=== PATIENT | male | born 1940 | race Caucasian/White ===

== ENCOUNTER 2019-01-05 12:46 | Emergency (ER) | payer MEDICARE ==
[2019-01-05 13:22] LABS: #Eosinphils 0.4 thou/uL (0.0-0.7); #Lymphocytes 1.2 thou/uL (1.20-3.40); #Monocytes 0.9 thou/uL (0.11-0.59); #Neutrophils 8.9 thou/uL (1.40-6.50); %Basophils 0.1 % (0.0-1.0); %Eosinophils 3.4 % (0.0-10.0); %Lymphocytes 10.2 % (21.0-51.0); %Monocytes 7.6 % (0.0-10.0); %Neutrophils 78.7 % (42.0-75.0); Hemoglobin 13.2 g/dL (14.0-18.0); Mean Corpuscular HGB CONC 31.1 g/dL (32.0-36.0); Mean Corpuscular Hemoglobin 28.3 pg (27.0-31.0); Mean Corpuscular Volume 90.7 fL (78.0-98.0); Mean Platelet Volume 7.1 fL (7.4-10.4); Platelet Count 321 thou/uL (130-400); RBC Distribution Width 13.4 % (11.5-14.5); Red Blood Cell (RBC) Count 4.66 mill/uL (4.70-6.10); White Blood Cell (WBC) Count 11.3 thou/uL (4.8-10.8)
[2019-01-05] MEDS ORDERED: methylPREDNISolone Sod Succ/PF 125 MG/2 ML VIAL ONE (13:27)
--- NOTE | 2019-01-05 13:29 | RAD ---
FXR Chest 1 View Portable History: [Dyspnea] Comparison: Radiograph October 13, 2015 Findings: Abnormal scarring both lung bases. Bullous formation in the upper lobes. Heart size is erika lar. No acute osseous abnormality. Calcific plaque and scarring left lung apex. Impression: Obstructive pulmonary disease. Likely scarring both lung bases.
[2019-01-05 13:54] LABS: ALT (SGPT) 10 U/L (8-55); AST (SGOT) 11 U/L (5-34); Albumin 3.7 g/dL (3.4-4.8); Alkaline Phosphatase 70 U/L (40-150); Anion Gap 13 mmol/L (10-20); BUN (Urea Nitrogen) 23 mg/dL (8.4-25.7); Bilirubin, Total 0.4 mg/dL (0.2-1.2); Calc. Creatinine Clearance 0 mL/min (70-130); Carbon Dioxide 35 mmol/L (23-31); Chloride 95 mmol/L (98-107); Estimated GFR-MDRD 74; Globulin 2.2 g/dL (2.4-3.5); Glucose 102 mg/dL (83-110); Potassium 3.9 mmol/L (3.5-5.1); Protein, Total 5.9 g/dL (5.8-8.1); Sodium 139 mmol/L (136-145)
[2019-01-05 15:18] LABS: Actual Bicarbonate (HCO3a) 33.3 mEq/L (22-28); Analyzer IN Cardio ER; Base Excess (BEa) 7.8 mEq/L (-2.0 to +3.0); Calcium, Ionized 1.19 mmol/L (1.12-1.30); Carboxyhemoglobin (COHb) 0.3 gm% (0.0-3.0); Hemoglobin (Hb) 13.3 g/dL (14.0-18.0); O2 Tension (PaO2) 79.6 mmHg (> 60.0); Potassium - ABG Lab 3.77 mmol/L (3.70-5.30); pH, Arterial 7.44 (7.35-7.45)
[2019-01-05 15:19] LABS: Puncture Site L.R.
== END 2019-01-05 15:51 | disposition home or self-care (01) ==
LOC: ERS 12:46
DX: J44.9 Chronic obstructive pulmonary disease, unspecified (principal); I10 Essential (primary) hypertension; E78.5 Hyperlipidemia, unspecified; Z87.891 Personal history of nicotine dependence; Z79.899 Other long term (current) drug therapy; Z79.51 Long term (current) use of inhaled steroids; Z79.01 Long term (current) use of anticoagulants
CPT/HCPCS: 71045; 80053; 82805; 83880; 84484; 85025; 93005; 94640; 96374; J2930; J7620

== ENCOUNTER 2019-11-13 11:42 | Inpatient (IN) | payer MEDICARE ==
[2019-11-13] MEDS ORDERED: Nitroglycerin 2% Ointment 1 INCH/1 GM Packet ONE (11:46)
[2019-11-13 12:00] LABS: Actual Bicarbonate (HCO3a) 45.8 mEq/L (22-28); Analyzer IN Cardio ER; Base Excess (BEa) 18.1 mEq/L (-2.0 to +3.0); Calcium, Ionized 1.16 mmol/L (1.12-1.30); Carboxyhemoglobin (COHb) 0.1 gm% (0.0-3.0); Hemoglobin (Hb) 10.8 g/dL (14.0-18.0); O2 Tension (PaO2) 86.8 mmHg (> 60.0); Potassium - ABG Lab 4.19 mmol/L (3.70-5.30); pH, Arterial 7.41 (7.35-7.45)
--- NOTE | 2019-11-13 12:04 | RAD ---
XR Chest 1 View Portable HISTORY: Shortness of breath COMPARISON: 05/11/2019 FINDINGS: The heart size is normal. The aorta is tortuous. There is been interval development of 8.5 cm mass in the right infrahilar region. This is suspicious for malignancy and should be evaluated with a CT scan.
[2019-11-13 12:10] LABS: #Eosinphils 0.1 thou/uL (0.0-0.7); #Lymphocytes 0.7 thou/uL (1.20-3.40); #Monocytes 1.1 thou/uL (0.11-0.59); #Neutrophils 8.1 thou/uL (1.40-6.50); %Basophils 0.4 % (0.0-1.0); %Eosinophils 0.8 % (0.0-10.0); %Lymphocytes 6.7 % (21.0-51.0); %Monocytes 10.7 % (0.0-10.0); %Neutrophils 81.5 % (42.0-75.0); Mean Corpuscular HGB CONC 31.6 g/dL (32.0-36.0); Mean Corpuscular Hemoglobin 28.4 pg (27.0-31.0); Mean Corpuscular Volume 89.8 fL (78.0-98.0); Mean Platelet Volume 7.2 fL (7.4-10.4); Platelet Count 304 thou/uL (130-400); RBC Distribution Width 14.3 % (11.5-14.5); Red Blood Cell (RBC) Count 3.53 mill/uL (4.70-6.10); White Blood Cell (WBC) Count 9.9 thou/uL (4.8-10.8)
[2019-11-13 12:28] LABS: Bilirubin Negative (Negative); Blood, Urine 3+ (Negative); Clarity Turbid (Clear); Glucose, Urine (Dipstick) Normal (Negative); Leukocyte 25 Leu/uL (Negative); Nitrite Negative (Negative); Protein, Urine (Dipstick) 20 mg/dL (Neg-Trace); RBC/HPF Greater than 50 HPF (0-3); Squamous Epithelial None Seen HPF (0-3); Urobilinogen Normal mg/dL (Less than 2)
[2019-11-13 12:30] LABS: ALT (SGPT) 9 U/L (8-55); AST (SGOT) 12 U/L (5-34); Albumin 3.4 g/dL (3.4-4.8); Alkaline Phosphatase 71 U/L (40-110); BUN (Urea Nitrogen) 18 mg/dL (8.4-25.7); Bilirubin, Total 0.4 mg/dL (0.2-1.2); Calc. Creatinine Clearance 0 mL/min (70-130); Calcium 9.4 mg/dL (7.8-10.44); Estimated GFR-MDRD Greater than 90; Globulin 3.1 g/dL (2.4-3.5); Glucose 104 mg/dL (83-110); Protein, Total 6.5 g/dL (5.8-8.1)
[2019-11-13 12:39] LABS: Bacteria/HPF 1+ HPF (None Seen)
[2019-11-13 12:39] LABS: Anion Gap 15 mmol/L (10-20); Chloride 87 mmol/L (98-107); Potassium 4.3 mmol/L (3.5-5.1); Sodium 139 mmol/L (136-145)
[2019-11-13 12:43] LABS: Carbon Dioxide 41 mmol/L (23-31)
[2019-11-13 13:06] LABS: Actual Bicarbonate (HCO3a) 45.2 mEq/L (22-28); Analyzer IN Cardio ER; Base Excess (BEa) 17.3 mEq/L (-2.0 to +3.0); Calcium, Ionized 1.16 mmol/L (1.12-1.30); Carboxyhemoglobin (COHb) 0.1 gm% (0.0-3.0); Hemoglobin (Hb) 10.9 g/dL (14.0-18.0); O2 Tension (PaO2) 100.9 mmHg (> 60.0); Potassium - ABG Lab 4.22 mmol/L (3.70-5.30)
[2019-11-13 13:07] LABS: CO2 Tension 73.2 mmHg (35.0-45.0)
[2019-11-13 13:08] LABS: Puncture Site RRA
[2019-11-13] MEDS ORDERED: Furosemide 40 MG/4 ML VIAL ONE (13:08)
[2019-11-13 13:09] LABS: Puncture Site RRA
[2019-11-13] MEDS ORDERED: Diltiazem 125 MG/25 ML ONE (13:15)
[2019-11-13] MEDS ORDERED: Sodium Chloride 0.65% Nasal 44 ML BOT EA NARE PRN (14:39)
[2019-11-13] MEDS ORDERED: Ondansetron PF 4 MG/2 ML Vial IVP PRN (14:39)
[2019-11-13] MEDS ORDERED: Bisacodyl 10 MG SUPP PR PRN (14:39)
[2019-11-13] MEDS ORDERED: hydrALAZINE 20 MG/ML VIAL SLOW IVP PRN (14:39)
[2019-11-13] MEDS ORDERED: Diabetic Tussin 200 MG/10 ML UDCUP PO PRN (14:39)
[2019-11-13] MEDS ORDERED: Loratadine 10 MG TAB PO PRN (14:39)
[2019-11-13] MEDS ORDERED: Ondansetron ODT 4 MG TAB PO PRN (14:39)
[2019-11-13] MEDS ORDERED: Cepastat Lozenges 1 LOZ PO PRN (14:39)
[2019-11-13] MEDS ORDERED: Senokot S 8.6-50 MG TAB PO PRN (14:39)
[2019-11-13] MEDS ORDERED: Loperamide HCl 2 MG CAP PO PRN (14:39)
[2019-11-13] MEDS ORDERED: Artificial Tear Sol 15 ML BOT EA EYE PRN (14:39)
--- NOTE | 2019-11-13 15:29 | HP ---
PRIMARY CARE PHYSICIAN: Dr. Blackwood. REASON FOR ADMISSION: Acute on chronic respiratory failure with hypoxia and hypercapnia, COPD exacerbation, acute on chronic right-sided heart failure exacerbation, atrial fibrillation with rapid ventricular response. HISTORY OF PRESENT ILLNESS: An 79-year-old male, who has end-stage COPD as well as chronic respiratory failure, on 4 L nasal cannula oxygen, who is following full stack php developer at the [facility]. The patient lives at home, and for last three days, he is having increasing shortness of breath. He denies any flu-like illness, but his condition gotten worse this morning. He was not able to talk in full sentence and he was not able to breathe by himself and that is why the patient was brought to emergency room by Paramedics. When he arrived to emergency room, he appeared in respiratory distress. He was not able to talk in full sentence. He required BiPAP and he had ABG done which showed CO2 of 75, and pH was 7.40, and bicarbonate 45.2. When looking at his old record, the patient also has chronic retention of COPD, but lately this problem gotten worse. The patient denies any chest pain or palpitation, but when he arrived to emergency room, he was having atrial fibrillation with RVR. He was treated with Cardizem drip. He was kept on BiPAP and after that the patient started feeling better, and after BiPAP started, the patient was able to talk by himself and he was not appeared in respiratory distress. The patient also has increasing bilateral lower extremity edema. The patient denies any fever or chills. He does not have any syncope. EMERGENCY ROOM COURSE: The patient was given Cardizem push and subsequently Cardizem drip was started. Lasix 80 mg given. Nitroglycerin patch was applied. REVIEW OF SYSTEMS: CONSTITUTIONAL: Negative for weight loss or gain, ability to conduct usual activities. SKIN: Negative for rash, itching. EYES: Negative for double vision, pain. ENT/MOUTH: Negative for nose bleeding, neck stiffness, pain, tenderness. CARDIOVASCULAR: Negative for palpitations, dyspnea on exertion, orthopnea. RESPIRATORY: Negative for shortness of breath, wheezing, cough, hemoptysis, fever or night sweats. GASTROINTESTINAL: Negative for poor appetite, abdominal pain, heartburn, nausea, vomiting, constipation, or diarrhea. GENITOURINARY: Negative for urgency, frequency, dysuria, nocturia. MUSCULOSKELETAL: Negative for pain, swelling. NEUROLOGIC/PSYCHIATRIC: Negative for anxiety, depression. ALLERGY/IMMUNOLOGIC: Negative for skin rash, bleeding tendency. Please see my HPI for pertinent positives and negatives. All other review of systems reviewed and negative except as mentioned in HPI. ADDITIONAL INFORMATION: The patient also reports that he is following his full stack php developer in [facility] and he had CT scan done about a week ago and he was told that he has some lung mass and that is why he has outpatient PET scan ordered. PAST MEDICAL HISTORY: Chronic respiratory failure with hypoxia and hypercapnia, end-stage COPD, history of pulmonary embolism, benign enlargement of prostate, hypertension, history of prostate cancer, chronic atrial fibrillation, chronic physical deconditioning, dyslipidemia. PAST SURGICAL HISTORY: Lumbar laminectomy, bilateral knee surgery. ALLERGIES: PENICILLIN, HYDROCHLOROTHIAZIDE, ADHESIVE TAPE. SOCIAL HISTORY: The patient lives at home with his family. He is former smoker, currently nonsmoker. He denies any alcohol abuse. He denies any other illicit drug abuse. FAMILY HISTORY: Positive for SC and coronary artery disease in his father. Mother also had cancer. One brother had heart attack. Sister from COPD. CURRENT HOME MEDICATIONS: 1. Brovana nebulization twice daily. 2. Pulmicort nebulization twice daily. 3. DuoNeb four times daily. 4. Proscar 5 mg daily. 5. Hydroxyzine 25 mg p.o. p.r.n. 6. Simvastatin 40 mg daily. 7. Cardizem CD 180 mg daily. 8. Xarelto 20 mg daily. 9. Lasix 40 mg p.o. daily. PAST PSYCHIATRIC HISTORY: Reviewed and negative. PHYSICAL EXAMINATION: VITAL SIGNS: Vital signs upon arrival to emergency room, blood pressure 133/72, pulse 140 and irregular, respiratory rate 32, saturation 99% on 3 L oxygen, weight 72 kg, temperature 98.5. GENERAL: The patient is currently alert, awake, no obvious acute distress. HEENT: Head, normocephalic and atraumatic. NECK: Supple. No JVD. No meningeal signs of irritation. LUNGS: Air entry reduced bilaterally, few scattered wheezing as well as rales noted. CARDIAC: S1, S2. Irregularly irregular. Systolic murmur noted parasternally. No gallop. No rub. ABDOMEN: Soft, bowel sounds present, nontender, nondistended. No organomegaly. No mass. EXTREMITIES: Bilateral lower extremity pitting edema noted. NEUROLOGIC: Nonfocal examination. SIGNIFICANT LABORATORY DATA: EKG showing atrial fibrillation with rapid ventricular response. CBC; WBC a 9.9, hemoglobin 10.0, platelet 304. ABG; pH 7.40, CO2 of 75, O2 of 100.9, bicarb 45.2, saturation 97.8. BMP; sodium 139, potassium 4.3, chloride 87, carbon dioxide 41, BUN 18, creatinine 0.69, glucose 104, calcium 9.4, lactic acid 0.9. LFT; AST 12, ALT 9, alkaline phosphatase 71, albumin 3.4. CK-MB 3.0, troponin 0.040. BNP 224.0. Urinalysis; rbc greater than 50 and wbc 7 to 10. ASSESSMENT AND PLAN: 1. Acute on chronic respiratory failure with hypoxia and hypercapnia. 2. Atrial fibrillation with rapid ventricular response. 3. Acute on chronic diastolic congestive heart failure, predominantly right-sided heart failure. 4. Chronic obstructive pulmonary disease exacerbation. 5. Respiratory acidosis with compensation with metabolic alkalosis. 6. Demand ischemia secondary to type 2 myocardial infarction. 7. Chronic physical deconditioning. 8. Normocytic normochromic anemia. 9. Chronic anticoagulation with Xarelto. 10. Benign enlargement of prostate with history of prostate cancer. 11. Dyslipidemia. 12. Hypertension. 13. Chronic physical deconditioning. 14. Anemia, normocytic and normochromic anemia. DISCUSSION: This patient has chronic CO2 retention, but lately gotten worse. Based on BMP, he has elevated carbon dioxide, and at the same time, the patient also has elevated bicarbonate and pH is normal and that supports the patient has compensated respiratory acidosis from end-stage COPD. The patient has right-sided heart failure predominantly from chronic hypoxia and suspecting cor pulmonale. He also has atrial fibrillation which has gotten worse from hypoxia and hypercapnia. At this point, the patient will require admission. We will consult. PLAN: 1. Admission to [facility] as the patient has been stabilized and currently the patient appears stable. Pulmonary consultation. 2. Cardiology consultation for atrial fibrillation with RVR. 3. Continue Lasix 40 mg IV b.i.d. and also consider acetazolamide 250 mg t.i.d. to prevent alkalosis. 4. Cardizem drip and titrate as needed. 5. Empiric antibiotic therapy with levofloxacin daily. 6. DuoNeb every 4 hourly and Solu-Medrol 40 mg IV q.6 hourly, Mucinex 600 mg twice daily, Pulmicort nebulization twice daily. 7. Protonix 40 mg IV daily. 8. Monitor labs. Do serial cardiac enzymes x3. 9. The patient also has a hilar mass and that is the patient is already followed by full stack php developer at [facility] and he is scheduled for outpatient PET scan. The patient's long-term prognosis is very poor. The patient is not a candidate for future any kind of surgical treatment or chemotherapy. I have discussed with the patient and family member about code status at this point, but the patient wanted to talk to his son to decide about DNR, but the patient's sister and patient is inclined to her DNR status, but they have not made any final decision yet. We will consult palliative care. 10. Deep venous thrombosis prophylaxis. At this point, the patient is not taking Xarelto once we confirm that they will resume selected home medication. 11. Gastrointestinal prophylaxis, Protonix 40 mg IV daily. DISPOSITION PLAN: Based on clinical course, the patient's condition is critical and prognosis is guarded based on clinical course. Plan of care discussed with the patient and family member at bedside in the emergency room in detail. Job ID: [id number]
[2019-11-13 15:31] LABS: Troponin I 0.064 ng/mL (< 0.028)
[2019-11-13] MEDS ORDERED: Sodium Chloride 0.9% (PF) 10 ML VIAL FS PRN (15:51)
[2019-11-13] MEDS ORDERED: Bacteriostatic Water 30 ML VIAL FS PRN (15:52)
[2019-11-13] MEDS ORDERED: Levofloxacin 500 mg/D5W 100 ml Premix Bag ONE (17:30)
[2019-11-13 18:19] LABS: Troponin I 0.052 ng/mL (< 0.028)
[2019-11-13] MEDS: Budesonide 0.5 MG/2 ML NEB INH SCH (21:09)
[2019-11-13] MEDS: methylPREDNISolone Sod Succ 40 MG VIAL IVP SCH (22:17)
[2019-11-13] MEDS: guaiFENesin ER 600 MG TAB PO SCH (22:22)
[2019-11-13] MEDS: Atorvastatin Calcium 20 MG TAB PO SCH (22:22)
[2019-11-13] MEDS: AcetaZOLAMIDE 250 MG TAB PO SCH (22:22)
[2019-11-13] MEDS: Famotidine 20 MG TAB PO SCH (22:22)
[2019-11-14] MEDS: methylPREDNISolone Sod Succ 40 MG VIAL IVP SCH ×3 (01:11→14:53)
[2019-11-14] MEDS: Diltiazem 125 MG in Sodium Chloride 0.9% 100 ML IVPB SCH ×2 (01:29→21:47)
[2019-11-14 06:03] LABS: Hemoglobin 10.4 g/dL (14.0-18.0); Mean Corpuscular HGB CONC 31.3 g/dL (32.0-36.0); Mean Corpuscular Hemoglobin 27.7 pg (27.0-31.0); Mean Corpuscular Volume 88.5 fL (78.0-98.0); Mean Platelet Volume 7.3 fL (7.4-10.4); Platelet Count 313 thou/uL (130-400); RBC Distribution Width 14.6 % (11.5-14.5); Red Blood Cell (RBC) Count 3.76 mill/uL (4.70-6.10); White Blood Cell (WBC) Count 15.4 thou/uL (4.8-10.8)
[2019-11-14] MEDS: Furosemide 40 MG/4 ML VIAL SLOW IVP SCH ×2 (06:25→14:55)
[2019-11-14 06:27] LABS: BUN (Urea Nitrogen) 21 mg/dL (8.4-25.7); Calc. Creatinine Clearance 85 mL/min (70-130); Calcium 9.5 mg/dL (7.8-10.44); Estimated GFR-MDRD Greater than 90; Glucose 124 mg/dL (83-110); Uric Acid 6.4 mg/dL (3.5-7.2)
[2019-11-14 06:38] LABS: Chloride 87 mmol/L (98-107); Potassium 4.1 mmol/L (3.5-5.1); Sodium 139 mmol/L (136-145)
[2019-11-14 06:41] LABS: Anion Gap 17 mmol/L (10-20); Carbon Dioxide 39 mmol/L (23-31)
[2019-11-14 07:16] LABS: Band 9 % (5-11); Lymphocytes 2 % (21-51); MDiff Complete? YES; Neutrophil 89 % (42-75)
[2019-11-14] MEDS: Budesonide 0.5 MG/2 ML NEB INH SCH ×2 (08:58→19:10)
[2019-11-14] MEDS: Aspirin Chewable 81 MG TAB PO SCH (10:01)
[2019-11-14] MEDS: Finasteride 5 MG TAB PO SCH (10:01)
[2019-11-14] MEDS: AcetaZOLAMIDE 250 MG TAB PO SCH ×3 (10:01→20:14)
[2019-11-14] MEDS: Famotidine 20 MG TAB PO SCH ×2 (10:01→20:14)
[2019-11-14] MEDS: guaiFENesin ER 600 MG TAB PO SCH ×2 (10:01→20:15)
[2019-11-14] MEDS: Pantoprazole 40 MG VIAL IVP SCH (10:02)
[2019-11-14] MEDS ORDERED: Rivaroxaban 10 MG TAB PO SCH ×2 (12:45→13:00)
--- NOTE | 2019-11-14 12:49 | PDOC.HOSPP ---
- Subjective Encounter Date: 11/14/19 Encounter Time: 08:00 Subjective: no overnight events. This morning, breathing and saturation improving. Has no complaints. - Objective Vital Signs & Weight: Vital Signs (12 hours) Temp Pulse Resp Pulse Ox 11/14/19 10:16 104 H 21 H 95 11/14/19 08:58 117 H 29 H 11/14/19 07:39 97.6 F 11/14/19 03:50 97.2 F L 11/14/19 01:45 100 Weight Weight 169 lb 11.2 oz Most Recent Monitor Data Heart Rate from ECG 102 NIBP 116/76 NIBP BP-Mean 89 Respiration from ECG 24 SpO2 96 I&O: 11/13/19 11/14/19 11/15/19 06:59 06:59 06:59 Intake Total 649 Output Total 600 275 Balance 49 -275 Result Diagrams: 11/14/19 05:33 11/14/19 05:33 Radiology Reviewed by me: Yes Hospitalist ROS - Review of Systems Constitutional: denies: fever, chills, sweats, weakness, malaise, other Respiratory: reports: cough, dry. denies: shortness of breath, hemoptysis, SOB with excertion, pleuritic pain, sputum, wheezing Cardiovascular: denies: chest pain, palpitations, orthopnea, paroxysmal noc. dyspnea, edema, light headedness, other Gastrointestinal: denies: nausea, vomiting, abdominal pain, diarrhea, constipation, melena, hematochezia, other Genitourinary: denies: dysuria, frequency, incontinence, hematuria, retention, other Neurological: denies: weakness, incoordination - Medication Medications: Active Medications Generic Name Dose Route Start Last Admin Trade Name Freq PRN Reason Stop Dose Admin Acetazolamide 250 mg 11/13/19 21:00 11/14/19 10:01 Diamox PO 250 mg TID KHADRA Administration Albuterol/Ipratropium 3 ml 11/13/19 15:00 11/14/19 10:16 Duoneb NEB 3 ml [id number] KHADRA Administration Aspirin 81 mg 11/14/19 09:00 11/14/19 10:01 Aspirin Chewable PO 81 mg DAILY KHADRA Administration Atorvastatin Calcium 20 mg 11/13/19 21:00 11/13/19 22:22 Lipitor PO 20 mg HS KHADRA Administration Budesonide 0.5 mg 11/13/19 18:30 11/14/19 08:58 Pulmicort Neb Solution INH 0.5 mg BID-RT KHADRA Administration Famotidine 20 mg 11/13/19 21:00 11/14/19 10:01 Pepcid PO 20 mg BID KHADRA Administration Finasteride 5 mg 11/14/19 09:00 11/14/19 10:01 Proscar PO 5 mg DAILY KHADRA Administration Furosemide 40 mg 11/14/19 06:00 11/14/19 06:25 Lasix SLOW IVP 40 mg 0600,1400 KHADRA Administration Guaifenesin 600 mg 11/13/19 21:00 11/14/19 10:01 Mucinex PO 600 mg Q12HR KHADRA Administration Diltiazem HCl 125 mg/ Sodium 125 mls @ 10 mls/hr 11/13/19 14:45 11/14/19 01: 29 Chloride IVPB 125 mls INF KHADRA Administration Protocol 10 MG/HR Levofloxacin 500 mg/ Device 100 mls @ 100 mls/hr 11/13/19 17:00 11/13/19 17: 38 IVPB 100 mls Q24HR KHADRA Administration Methylprednisolone Sodium Succinate 40 mg 11/13/19 18:00 11/14/19 06:25 Solu-Medrol IVP 40 mg Q6HR KHADRA Administration Pantoprazole Sodium 40 mg 11/14/19 09:00 11/14/19 10:02 Protonix IVP 40 mg DAILY KHADRA Administration Sodium Chloride 10 ml 11/13/19 15:51 11/14/19 10:02 Normal Saline Pf FS 10 ml PRN PRN Administration RECONSTITUTION - Exam General Appearance: NAD, awake alert Neck: no JVD Heart: no murmur, no gallops, no rubs, normal peripheral pulses, irregular Respiratory: no wheezes, no ronchi, rales Respiratory - other findings: b/l lower field inspiratory rales; b/l pitting LE edema midtibial level Gastrointestinal: soft, non-tender, normal bowel sounds Extremities: 1+ LE edema Neurological: cranial nerve grossly intact Psychiatric: normal affect, normal behavior, A&O x 3 Hosp A/P - Plan #decompensated HF due to poorly controlled atrial fibrillation w/ RVR #pulmonary congestion -currently better rate control on cardizem drip; will try to wean off -being diuresed; responding well, breathing and saturation improving #chronic respiratory failure -due to end stage COPD -showing chronic respiratory acidosis with proper compensation metabolic compensation #atrial fibrillation w/ RVR -restarted home medications including anticoagulation #right infrahilar mass -per patient and family, patient's oncologist aware and pending outpatient workup including PET Plan: -continue diuresis -presentation more likely due to decomp HF due to RVR, however will continue steroids and levofloxacin for now -will reassess patient for transfer to medical floor on 11/14 dispo/code -DNAR (also as outpatient) -GI - pantoprazole 40mg PO qd -DVT - on xarelto for afib
--- NOTE | 2019-11-14 15:24 | CON ---
DATE OF CONSULTATION: 11/14/2019 REASON FOR CONSULTATION: AFib. PRIMARY SURGICAL GARMENT ASSEMBLER: Radha Izaguirre MD HISTORY OF PRESENT ILLNESS: Mr. De Leon is a pleasant 79-year-old white gentleman, who comes to the hospital for shortness of breath. He has a history of COPD. He was diagnosed with a COPD exacerbation and admitted for IV steroids and pulmonary toilet. During his admission, he was found to have an irregular rhythm, so EKG was done, that showed possibly atrial fibrillation, so Cardiology has been consulted for this. PAST MEDICAL HISTORY: 1. End-stage COPD. 2. History of pulmonary embolism in the past. 3. BPH. 4. Hypertension. 5. Prostate cancer. 6. History of multifocal atrial tachycardia. SURGICAL HISTORY: 1. Lumbar laminectomy. 2. Bilateral knee surgeries. OUTPATIENT MEDICATIONS: 1. Brovana nebulization. 2. Pulmicort. 3. DuoNeb. 4. Proscar. 5. Hydroxyzine. 6. Simvastatin. 7. Cardizem 180 a day. 8. Xarelto 20 mg a day. 9. Lasix 40 mg a day. ALLERGIES: PENICILLIN, HYDROCHLOROTHIAZIDE, AND ADHESIVE TAPE. SOCIAL HISTORY: Former smoker. No alcohol or drugs. FAMILY HISTORY: Early coronary artery disease in his father. One brother of an [place]. Sister from COPD. REVIEW OF SYSTEMS: A 12-point review of systems was done and was negative unless stated in the history of present illness. PHYSICAL EXAMINATION: VITAL SIGNS: Temperature 97.6, pulse 102, respiratory rate 24, satting 96% on 3 L nasal cannula, and blood pressure 116/76. GENERAL: Awake, alert, oriented x3, in no distress. HEENT: Normocephalic and atraumatic. NECK: Supple. LUNGS: Reduced breath sounds. CARDIOVASCULAR: S1 and S2, irregular, heart rate in the 90s. ABDOMEN: Soft. Positive bowel sounds. EXTREMITIES: 1+ edema in the ankles. SKIN: Warm and dry. LABORATORY DATA: Laboratory work was reviewed. White count of 15, hemoglobin of 10, hematocrit 33, and platelet count of 213. ABG was reviewed. Chemistries were reviewed and unremarkable. Troponin is in the indeterminate range at 0.04, 0.06, and 0.05. BNP was 224. UA was reviewed. EKG was reviewed, it looks like multifocal atrial tachycardia at this time. ASSESSMENT AND PLAN: 1. Multifocal atrial tachycardia. 2. History of atrial fibrillation in the past. 3. Chronic anticoagulation with Xarelto. 4. Chronic obstructive pulmonary disease exacerbation. PLAN: 1. Continue Xarelto for stroke prophylaxis for his chronic AFib. 2. Currently his irregular rhythm seems more to be MAT. 3. Heart rate ideally will try to keep it less than 100. We will try to rate control a little bit better. Currently on a diltiazem drip. Heart rate is ranging in the 90s to 110s. Hopefully, once the COPD gets better and he is diuresed a little bit more, his heart rate will come down with that. 4. Continue pulmonary toilet with steroids and nebulizations. Thank you for letting us to participate in the care of this patient. We will follow. Job ID: [id number]
--- NOTE | 2019-11-14 19:57 | CON ---
DATE OF CONSULTATION: 11/14/2019 HISTORY OF PRESENT ILLNESS: Hernandez De Leon is an 79-year-old male, who is followed at the [facility]. He had a left lung nodule radiated over 10 years ago for malignancy. He is not felt to be a surgical candidate. He has been on oxygen at home with COPD for over 10 years. He has now been identified as having a 6 x 5 cm pleural based mass in his right lower lobe as well as 2 renal lesions that are suspicious for malignancy. He is awaiting PET imaging. He presented with shortness of breath, but says he is feeling much better. PAST MEDICAL HISTORY: Remarkable for: 1. COPD. 2. History of pulmonary embolism. 3. BPH. 4. Hypertension. 5. Prostate cancer. 6. History of lung cancer, radiated. 7. History of MAT in the past. 8. History of laminectomy. 9. History of knee surgery bilaterally. MEDICATIONS: Medications prior to admission: 1. Brovana. 2. Pulmicort. 3. DuoNeb. 4. Proscar. 5. Hydroxyzine. 6. Simvastatin. 7. Cardizem. 8. Xarelto. 9. Lasix. ALLERGIES: HE REPORTS PENICILLIN, HYDROCHLOROTHIAZIDE, AND TAPE ALLERGIES. SOCIAL HISTORY: He has not smoked in many years. He is not a daily drinker. FAMILY HISTORY: Positive for vascular disease and COPD. REVIEW OF SYSTEMS: Ten-point review of systems completed, otherwise negative. PHYSICAL EXAMINATION: GENERAL: He is a very pleasant, cooperative, in no distress. He actually appears older than his age. VITAL SIGNS: Afebrile. Heart rates in the 80s, blood pressure 131/67, respiratory rates in the teens. HEAD AND NECK: Unremarkable. LUNGS: Remarkable for distant breath sounds. HEART: Regular rhythm. S1 and S2 are normal. ABDOMEN: Soft and nontender. EXTREMITIES: Without clubbing, cyanosis, or edema. IMPRESSION AND PLAN: 1. Chronic obstructive pulmonary disease exacerbation, improving. 2. Right lung mass. He wants to have this evaluated per his previous care at the [facility]. 3. Renal masses that are possibly malignant by my review of the CT scan report. 4. History of multifocal atrial tachycardia with intermittent rhythm suggestive of multifocal atrial tachycardia this admission. 5. History of atrial fibrillation and chronic anticoagulation. We will continue to follow. I met with family and answered all their questions. Appears to improve rapidly. Probably be switched to p.o. antimicrobial therapy in the morning. He could probably be switched to p.o. steroids in the morning as well. This is a 50 minute consult, with greater than 50% of time spent on unit coordinating care. Job ID: [id number] [id number]
[2019-11-14] MEDS: Atorvastatin Calcium 20 MG TAB PO SCH (20:15)
[2019-11-15 04:05] LABS: BUN (Urea Nitrogen) 33 mg/dL (8.4-25.7); Calc. Creatinine Clearance 71 mL/min (70-130); Calcium 9.6 mg/dL (7.8-10.44); Estimated GFR-MDRD 82; Glucose 126 mg/dL (83-110); Magnesium 1.9 mg/dL (1.6-2.6)
[2019-11-15 04:15] LABS: Anion Gap 16 mmol/L (10-20); Carbon Dioxide 34 mmol/L (23-31); Chloride 88 mmol/L (98-107); Potassium 3.4 mmol/L (3.5-5.1); Sodium 135 mmol/L (136-145)
[2019-11-15 04:45] LABS: Band 10 % (5-11); Hemoglobin 10.7 g/dL (14.0-18.0); Lymphocytes 3 % (21-51); MDiff Complete? YES; Mean Corpuscular HGB CONC 32.1 g/dL (32.0-36.0); Mean Corpuscular Hemoglobin 27.9 pg (27.0-31.0); Mean Platelet Volume 7.5 fL (7.4-10.4); Monocytes 10 % (0-10); Neutrophil 77 % (42-75); Platelet Count 334 thou/uL (130-400); Platelet Morphology Comment Appears Adequate; RBC Distribution Width 14.7 % (11.5-14.5); Red Blood Cell (RBC) Count 3.83 mill/uL (4.70-6.10); White Blood Cell (WBC) Count 19.3 thou/uL (4.8-10.8)
[2019-11-15] MEDS: Furosemide 40 MG/4 ML VIAL SLOW IVP SCH ×2 (06:36→12:57)
[2019-11-15] MEDS ORDERED: predniSONE 20 MG TAB PO SCH (08:00)
[2019-11-15] MEDS: Budesonide 0.5 MG/2 ML NEB INH SCH ×2 (08:14→19:46)
[2019-11-15] MEDS: Diltiazem 125 MG in Sodium Chloride 0.9% 100 ML IVPB SCH ×2 (08:39→17:12)
[2019-11-15] MEDS: Finasteride 5 MG TAB PO SCH (08:46)
[2019-11-15] MEDS: guaiFENesin ER 600 MG TAB PO SCH ×2 (08:46→20:24)
[2019-11-15] MEDS: Aspirin Chewable 81 MG TAB PO SCH (08:46)
[2019-11-15] MEDS: Pantoprazole 40 MG VIAL IVP SCH (08:46)
[2019-11-15] MEDS: Rivaroxaban 10 MG TAB PO SCH (08:46)
[2019-11-15] MEDS: AcetaZOLAMIDE 250 MG TAB PO SCH ×3 (08:46→20:24)
[2019-11-15] MEDS: Famotidine 20 MG TAB PO SCH ×2 (08:46→20:24)
[2019-11-15] MEDS ORDERED: Potassium Chloride 20 MEQ TAB PO SCH (10:30)
[2019-11-15] MEDS ORDERED: methylPREDNISolone Sod Succ 40 MG VIAL IVP SCH (12:00)
--- NOTE | 2019-11-15 12:14 | RAD ---
EXAM: Single view of the chest HISTORY: Respiratory distress COMPARISON: 11/13/2019 FINDINGS: Single view of the chest shows an enlarged cardiomediastinal silhouette. There is masslike fullness heart border on the inferior right. There is no evidence of consolidation, mass, or pleural effusion. The bones are unremarkable. IMPRESSION: There is an enlarged cardiomediastinal silhouette. However, this may be a combination of the heart and an adjacent mass. A CT the chest with contrast is recommended for further evaluation.
[2019-11-15] MEDS: methylPREDNISolone Sod Succ 40 MG VIAL IVP SCH ×2 (12:52→17:05)
[2019-11-15] MEDS ORDERED: Melatonin 3 MG TAB PO PRN (13:23)
--- NOTE | 2019-11-15 16:20 | PDOC.CPN ---
- Subjective Date: 11/15/19 Time: 16:18 Interval history: Feels more SOB today. - Review of Systems General: denies: fever/chills, weight/appetite/sleep changes, night sweats, fatigue Respiratory: reports: cough, congestion, shortness of breath Cardiovascular: denies: chest pain, palpitation, edema, paroxysmal nocturnal dyspnea, orthopnea Gastrointestinal: denies: nausea, vomiting, diarrhea, constipation, abd pain, GI bleeding Musculoskeletal: denies: pain, tenderness, stiffness, swelling, arthritis/ arthralgias Neurological: denies: numbness, syncope, seizure, weakness - Objective Allergies/Adverse Reactions: Allergies Allergy/AdvReac Type Severity Reaction Status Date / Time Penicillins Allergy Unknown Severe Verified 05/15/19 19:41 Hives adhesive tape Allergy Verified 05/16/19 01:24 Visit Medications: Current Medications Acetaminophen (Tylenol) 650 mg PO Q4H PRN PRN Reason: Headache/Fever/Mild Pain (1-3) Acetazolamide (Diamox) 250 mg PO TID [facility] Last Admin: 11/15/19 08:46 Dose: 250 mg Albuterol/Ipratropium (Duoneb) 3 ml NEB [id number] PRN PRN Reason: SOB &/or Wheezing Albuterol/Ipratropium (Duoneb) 3 ml NEB [id number] [facility] Last Admin: 11/15/19 14:37 Dose: 3 ml Artificial Tears (Liquitears 15ml Bottle) 2 drop EA EYE PRN PRN PRN Reason: Dry Eyes Aspirin (Aspirin Chewable) 81 mg PO DAILY [facility] Last Admin: 11/15/19 08:46 Dose: 81 mg Atorvastatin Calcium (Lipitor) 20 mg PO HS [facility] Last Admin: 11/14/19 20:15 Dose: 20 mg Benzonatate (Tessalon) 100 mg PO Q6H PRN PRN Reason: Cough Bisacodyl (Dulcolax) 10 mg [facility] DAILYPRN PRN PRN Reason: Constipation Budesonide (Pulmicort Neb Solution) 0.5 mg INH BID-RT [facility] Last Admin: 11/15/19 08:14 Dose: 0.5 mg Famotidine (Pepcid) 20 mg PO BID [facility] Last Admin: 11/15/19 08:46 Dose: 20 mg Finasteride (Proscar) 5 mg PO DAILY [facility] Last Admin: 11/15/19 08:46 Dose: 5 mg Furosemide (Lasix) 40 mg SLOW IVP 0600,1400 [facility] Stop: 11/15/19 23:59 Last Admin: 11/15/19 12:57 Dose: 40 mg Guaifenesin (Mucinex) 600 mg PO Q12HR [facility] Last Admin: 11/15/19 08:46 Dose: 600 mg Guaifenesin (Robitussin Sf) 200 mg PO Q4H PRN PRN Reason: Cough Hydralazine HCl (Apresoline) 10 mg SLOW IVP Q4H PRN PRN Reason: SBP > 180 and HR < 70 Diltiazem HCl 125 mg/ Sodium (Chloride) 125 mls @ 10 mls/hr IVPB INF [facility]; Protocol Last Admin: 11/15/19 08:39 Dose: 125 mls Levofloxacin (Levaquin) 500 mg PO 0600 [facility] Loperamide HCl (Imodium) 2 mg PO PRN PRN PRN Reason: Diarrhea/Loose Stools Loratadine (Claritin) 10 mg PO DAILYPRN PRN PRN Reason: Sinus Symptoms Melatonin (Melatonin) 1 mg PO HS PRN PRN Reason: Insomnia Methylprednisolone Sodium Succinate (Solu-Medrol) 20 mg IVP Q6HR [facility] Last Admin: 11/15/19 12:52 Dose: 20 mg Ondansetron HCl (Zofran Odt) 4 mg PO Q6H PRN PRN Reason: Nausea/Vomiting Ondansetron HCl (Zofran) 4 mg IVP Q6H PRN PRN Reason: Nausea/Vomiting Pantoprazole Sodium (Protonix) 40 mg IVP DAILY [facility] Last Admin: 11/15/19 08:46 Dose: 40 mg Rivaroxaban (Xarelto) 20 mg PO DAILY [facility] Last Admin: 11/15/19 08:46 Dose: 20 mg Senna/Docusate Sodium (Senokot S) 2 tab PO BID PRN PRN Reason: Constipation Sodium Chloride ([place] Nasal [place] 0.65%) 0 ml EA NARE QIDPRN PRN PRN Reason: Nasal Congestion Sodium Chloride (Normal Saline Pf) 10 ml FS PRN PRN PRN Reason: RECONSTITUTION Last Admin: 11/14/19 10:02 Dose: 10 ml Sterile Water (Bacteriostatic Water) 1 ml FS PRN PRN PRN Reason: RECONSTITUTION Throat Lozenges (Cepastat Lozenges) 1 bri PO Q2H PRN PRN Reason: Sore Throat Vital Signs & Weight: Vital Signs Temp Pulse Resp Pulse Ox 11/15/19 16:04 97.6 F 11/15/19 14:37 114 H 24 H 11/15/19 11:11 98.7 F 11/15/19 10:42 104 H 24 H 11/15/19 07:35 98 11/15/19 07:10 98.4 F Weight 169 lb 11.2 oz - Physical Exam General: other (SOB) HEENT: mucus membranes moist Neck: supple neck Cardiac: irregularly regular, tachycardia Lungs: decreased breath sounds Neuro: no lateralizing findings Abdomen: active bowel sounds Extremities: no edema Skin: clear Musculoskeletal: normal range of motion - Labs Result Diagrams: 11/15/19 03:30 11/15/19 03:30 Troponin/CKMB CK-MB (CK-2) 3.0 ng/mL (0-6.6) 11/13/19 11:53 Troponin I 0.052 ng/mL (< 0.028) H 11/13/19 17:43 - Telemetry Sinus rhythms and dysrhythmias: other (MAT) - Assessment/Plan Assessment/Plan: 1. MAT 2. Hx of afib 3. COPD exacerbation 4. R lung mass 5. Renal masses PLAN: - Continue diltiazem drip for rate control but likely tachycardia right now due to worsening SOB - Will repeat CXR as worsening SOB started right after he ate, concern for aspiration. - Continue rte control.
[2019-11-15] MEDS ORDERED: Furosemide 40 MG/4 ML VIAL SLOW IVP SCH (16:45)
[2019-11-15] MEDS ORDERED: Haloperidol Lactate 5 MG/ML VIAL IM PRN (16:57)
--- NOTE | 2019-11-15 17:21 | PRG ---
DATE OF SERVICE: 11/15/2019 SUBJECTIVE: Mr. De Leon is having some breakthrough periods of bronchospasm with increased frequency of his nebs. We will continue on IV steroids. OBJECTIVE: VITAL SIGNS: He is afebrile. Heart rate is 114, respiratory rates in the 20s, and blood pressure is 150/87. LUNGS: Remarkable for bilateral wheezes. HEART: Regular rhythm. ABDOMEN: Soft. EXTREMITIES: Without edema. IMPRESSION: 1. Chronic obstructive pulmonary disease exacerbation. 2. 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 3. Renal masses, likely malignant. 4. 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 5. History of pulmonary embolism. 6. History of multifocal atrial tachycardia. 7. Chronic anticoagulation. PLAN: Continue treatment of his COPD, probably very little in the way of therapeutic options with regard to the lung mass or the renal masses. This is being followed at the [facility]. Job ID: [id number]
[2019-11-15] MEDS: Atorvastatin Calcium 20 MG TAB PO SCH (20:24)
--- NOTE | 2019-11-15 20:54 | PDOC.HOSPP ---
- Subjective Encounter Date: 11/15/19 Encounter Time: 08:00 Subjective: no overnight events. In the AM, feeling well and has no complaints, no shortness of breath and same oxygen requirement, however early afternoon started having episodes of confusion and tachypnea after lunch, though sats remain high 90s. MAT persists with highly variable rate 90-140s during encounter in AM. - Objective Vital Signs & Weight: Vital Signs (12 hours) Temp Pulse Resp Pulse Ox 11/15/19 19:52 98.5 F 11/15/19 19:47 92 L 11/15/19 19:43 92 L 11/15/19 16:04 97.6 F 11/15/19 14:37 114 H 24 H 11/15/19 11:11 98.7 F 11/15/19 10:42 104 H 24 H Weight Weight 169 lb 11.2 oz Most Recent Monitor Data Heart Rate from ECG 130 NIBP 142/97 NIBP BP-Mean 112 Respiration from ECG 34 SpO2 91 I&O: 11/14/19 11/15/19 11/16/19 06:59 06:59 06:59 Intake Total 649 1896 954 Output Total 600 1925 1475 Balance 49 -29 -521 Result Diagrams: 11/15/19 03:30 11/15/19 03:30 Radiology Reviewed by me: Yes Hospitalist ROS - Review of Systems Constitutional: denies: fever, chills, sweats, weakness, malaise, other Respiratory: reports: cough, dry. denies: shortness of breath, hemoptysis, SOB with excertion, pleuritic pain, sputum, wheezing, other Cardiovascular: reports: chest pain, palpitations, edema. denies: orthopnea, paroxysmal noc. dyspnea, light headedness, other Gastrointestinal: denies: nausea, vomiting, abdominal pain, diarrhea, constipation, melena, hematochezia, other Neurological: denies: weakness, numbness, incoordination, change in speech, confusion - Medication Medications: Active Medications Generic Name Dose Route Start Last Admin Trade Name Freq PRN Reason Stop Dose Admin Acetazolamide 250 mg 11/13/19 21:00 11/15/19 20:24 Diamox PO 250 mg TID [facility]ADRA Administration Albuterol/Ipratropium 3 ml 11/15/19 14:30 11/15/19 19:43 Duoneb NEB 3 ml [id number] [facility] Administration Aspirin 81 mg 11/14/19 09:00 11/15/19 08:46 Aspirin Chewable PO 81 mg DAILY [facility] Administration Atorvastatin Calcium 20 mg 11/13/19 21:00 11/15/19 20:24 Lipitor PO 20 mg HS [facility] Administration Budesonide 0.5 mg 11/13/19 18:30 11/15/19 19:46 Pulmicort Neb Solution INH 0.5 mg BID-RT [facility] Administration Famotidine 20 mg 11/13/19 21:00 11/15/19 20:24 Pepcid PO 20 mg BID [facility] Administration Finasteride 5 mg 11/14/19 09:00 11/15/19 08:46 Proscar PO 5 mg DAILY [facility] Administration Furosemide 40 mg 11/14/19 06:00 11/15/19 12:57 Lasix SLOW IVP 11/15/19 23:59 40 mg 0600,1400 [facility] Administration Guaifenesin 600 mg 11/13/19 21:00 11/15/19 20:24 Mucinex PO 600 mg Q12HR [facility] Administration Haloperidol Lactate 0.5 mg 11/15/19 16:57 11/15/19 20:23 Haldol IM 0.5 mg Q6H PRN Administration . Diltiazem HCl 125 mg/ Sodium 125 mls @ 10 mls/hr 11/13/19 14:45 11/15/19 17: 12 Chloride IVPB 125 mls INF [facility] Administration Protocol 10 MG/HR Methylprednisolone Sodium Succinate 20 mg 11/15/19 12:00 11/15/19 17:05 Solu-Medrol IVP 20 mg Q6HR [facility] Administration Pantoprazole Sodium 40 mg 11/14/19 09:00 11/15/19 08:46 Protonix IVP 40 mg DAILY [facility] Administration Rivaroxaban 20 mg 11/15/19 09:00 11/15/19 08:46 Xarelto PO 20 mg DAILY [facility] Administration Sodium Chloride 10 ml 11/13/19 15:51 11/14/19 10:02 Normal Saline Pf FS 10 ml PRN PRN Administration RECONSTITUTION - Exam General Appearance: NAD, awake alert General - other findings: sitting comfortably in chair (in AM) ENT: normocephalic atraumatic Neck: no JVD Heart - other findings: irregularly irregular rhythm, highly variablie HR, tachycardic Respiratory: no wheezes, no ronchi, normal chest expansion, no tachypnea Respiratory - other findings: inspiratory rales, b/l to midfields Extremities: 2+ LE edema Extremities - other findings: b/l pitting edema mostly up to midtibial level Neurological: cranial nerve grossly intact, no focal deficits Psychiatric: normal affect, normal behavior, A&O x 3 Hosp A/P - Plan #decompensated HF due to poorly controlled atrial fibrillation w/ RVR / MAT #pulmonary congestion -initially afib w/ RVR; currently MAT with highly variable tachycardia -cardiology onboard, will continue current treatment and treatment of COPD exacerbation, which should improve/resolve arrhythmia #acute on chronic respiratory failure -due to end stage COPD; chronic CO2 retainer -in early PM, tachypnic after having a meal; concern for aspiration; however oxygen sats high 90s so not type I respiratory failure #Confusion -per nurse, waxing and waning -may be ICU or steroid induced delirium or due to aspiration; will continue to follow #right infrahilar mass -per patient and family, patient's oncologist aware and pending outpatient workup including PET Plan: -patient's input / output balance has been slightly positive; will increase diuresis considering hypervolemic state -will continue to treat COPD exacerbation to improve MAT with levofloxacin and steroids; meanwhile continue rate control with cardizem drip -will continue to monitor for signs of aspiration pneumonia that may require antibiotic escalation; swallow eval, meanwhile food change to dysphagia -follow i/o; supplement lasix as necessary dispo/code -DNAR (also as outpatient) -GI - pantoprazole 40mg PO qd -DVT - on xarelto for afib
[2019-11-15] MEDS ORDERED: Haloperidol Lactate 5 MG/ML VIAL IVPB PRN (21:07)
[2019-11-15] MEDS ORDERED: Haloperidol 1 MG TAB PO PRN (21:32)
[2019-11-16] MEDS ORDERED: Lorazepam 2 MG/ML VIAL SLOW IVP SCH (00:15)
[2019-11-16] MEDS: methylPREDNISolone Sod Succ 40 MG VIAL IVP SCH ×5 (00:35→23:44)
[2019-11-16 04:36] LABS: #Basophils 0.1 thou/uL (0.0-0.2); #Lymphocytes 0.2 thou/uL (1.20-3.40); #Monocytes 0.5 thou/uL (0.11-0.59); #Neutrophils 9.2 thou/uL (1.40-6.50); %Basophils 1.2 % (0.0-1.0); %Eosinophils 0.1 % (0.0-10.0); %Lymphocytes 1.8 % (21.0-51.0); %Monocytes 5.3 % (0.0-10.0); %Neutrophils 91.8 % (42.0-75.0); Hemoglobin 10.4 g/dL (14.0-18.0); Mean Corpuscular HGB CONC 31.8 g/dL (32.0-36.0); Mean Corpuscular Hemoglobin 27.9 pg (27.0-31.0); Mean Corpuscular Volume 87.7 fL (78.0-98.0); Mean Platelet Volume 7.7 fL (7.4-10.4); Platelet Count 319 thou/uL (130-400); RBC Distribution Width 14.7 % (11.5-14.5); Red Blood Cell (RBC) Count 3.72 mill/uL (4.70-6.10); White Blood Cell (WBC) Count 10.1 thou/uL (4.8-10.8)
[2019-11-16 04:54] LABS: BUN (Urea Nitrogen) 37 mg/dL (8.4-25.7); Calc. Creatinine Clearance 56 mL/min (70-130); Calcium 9.1 mg/dL (7.8-10.44); Estimated GFR-MDRD 63; Glucose 144 mg/dL (83-110); Magnesium 2.1 mg/dL (1.6-2.6)
[2019-11-16] MEDS: Diltiazem 125 MG in Sodium Chloride 0.9% 100 ML IVPB SCH ×2 (05:03→17:15)
[2019-11-16 05:04] LABS: Anion Gap 18 mmol/L (10-20); Carbon Dioxide 33 mmol/L (23-31); Chloride 91 mmol/L (98-107); Potassium 3.5 mmol/L (3.5-5.1); Sodium 138 mmol/L (136-145)
[2019-11-16] MEDS: Budesonide 0.5 MG/2 ML NEB INH SCH ×2 (08:51→20:18)
[2019-11-16] MEDS ORDERED: Digoxin 0.5 MG/2 ML AMP SLOW IVP SCH ×2 (09:30→13:00)
[2019-11-16] MEDS ORDERED: Potassium Chloride 40 MEQ in Premix Bag 1 BAG IVPB SCH (09:45)
--- NOTE | 2019-11-16 09:50 | PRG ---
DATE OF SERVICE: 11/16/2019 SUBJECTIVE: Mr. De Leon is sitting up in a chair. He said his breathing is "fair." No chest pain. OBJECTIVE: VITAL SIGNS: His blood pressure 157/96; pulse is 110 to 130, it is irregular. LUNGS: Some rhonchi. I do not hear much wheezing. CARDIAC: Irregularly irregular. ABDOMEN: Soft and nontender. EXTREMITIES: No edema. ASSESSMENT: 1. Multifocal atrial tachycardia with poorly controlled rate. 2. Severe chronic obstructive pulmonary disease. PLAN: 1. We will add digoxin. 2. The patient is being anticoagulated. 3. The goal is rate control on anticoagulant. Job ID: [id number]
[2019-11-16] MEDS: AcetaZOLAMIDE 250 MG TAB PO SCH ×3 (09:58→20:09)
[2019-11-16] MEDS: Aspirin Chewable 81 MG TAB PO SCH (09:58)
[2019-11-16] MEDS: Famotidine 20 MG TAB PO SCH ×2 (09:58→20:09)
[2019-11-16] MEDS: guaiFENesin ER 600 MG TAB PO SCH ×2 (09:58→20:09)
[2019-11-16] MEDS: Finasteride 5 MG TAB PO SCH (09:58)
[2019-11-16] MEDS: Rivaroxaban 10 MG TAB PO SCH (09:59)
[2019-11-16] MEDS: Pantoprazole 40 MG VIAL IVP SCH (09:59)
--- NOTE | 2019-11-16 10:22 | RAD ---
SINGLE VIEW OF THE CHEST: COMPARISON: 11/15/2019. HISTORY: Heart failure. FINDINGS: A single view of the chest shows an enlarged cardiomediastinal silhouette. However, there is mass-li ke fullness along the right heart border and a mass may be adjacent to the heart. No significant rigo nge has occurred compared to the prior exam. IMPRESSION: Mass-like fullness along the right heart border. A CT of the chest with contrast is still recommende d for further evaluation. POS: SHAYNA
--- NOTE | 2019-11-16 12:32 | PRG ---
DATE OF SERVICE: 11/16/2019 SUBJECTIVE: Hernandez De Leon is sitting up in the chair at bedside. He feels like he is close to his baseline. OBJECTIVE: VITAL SIGNS: He is afebrile. Heart rate 108, respiratory rate is in the high 20s, oximetry is 98, blood pressure 100/47. LUNGS: Remarkable for distant breath sounds. HEART: Regular rhythm. ABDOMEN: Soft. EXTREMITIES: Without edema. IMPRESSION: 1. Chronic obstructive pulmonary disease exacerbation, slowly improving. 2. Large lung mass, likely malignant. 3. Multifocal atrial tachycardia. 4. Renal mass is likely malignant. I really doubt that he is a good candidate for any type of invasive workup, much less treatment. He physiologically appears to be about 10 years older than his age and it would not be inappropriate to consider hospice evaluation at some point, but the family based on my evaluation over the weekend [facility], so we will leave it at that. We will continue to follow. Job ID: [id number]
[2019-11-16] MEDS ORDERED: Potassium Chloride 20 MEQ TAB PO SCH (13:00)
--- NOTE | 2019-11-16 13:07 | PDOC.HOSPP ---
- Subjective Encounter Date: 11/16/19 Encounter Time: 09:00 Subjective: overnight, agitated, pulled out IV, improved after Ativan. This morning, appears well again, recognizes me, and oriented to place. Increased oxygen demand compared to yesterday, satting 90s on 6L NC. - Objective Vital Signs & Weight: Vital Signs (12 hours) Temp Pulse Resp Pulse Ox 11/16/19 11:29 108 H 33 H 99 11/16/19 11:18 96.8 F L 11/16/19 09:59 130 H 11/16/19 08:52 130 H 11/16/19 08:51 108 H 108 H 99 11/16/19 08:00 100 11/16/19 07:18 96.8 F L 11/16/19 03:36 97.8 F Weight Weight 164 lb 12.8 oz Most Recent Monitor Data Heart Rate from ECG 111 NIBP 100/47 NIBP BP-Mean 64 Respiration from ECG 32 SpO2 98 I&O: 11/15/19 11/16/19 11/17/19 06:59 06:59 06:59 Intake Total 1896 1224 Output Total 7270 2227 Balance -29 -171 Result Diagrams: 11/16/19 04:11 11/16/19 04:11 Radiology Reviewed by me: Yes Hospitalist ROS - Review of Systems Constitutional: denies: fever, chills, sweats, weakness, malaise, other Respiratory: reports: SOB with excertion. denies: cough, dry, shortness of breath, hemoptysis, pleuritic pain, sputum, wheezing, other Cardiovascular: reports: edema. denies: chest pain, palpitations, orthopnea, paroxysmal noc. dyspnea, light headedness Gastrointestinal: denies: nausea, vomiting, diarrhea, melena, hematochezia Genitourinary: denies: hematuria Musculoskeletal: denies: neck pain, shoulder pain, arm pain, back pain Neurological: denies: weakness, numbness, incoordination, change in speech - Medication Medications: Active Medications Generic Name Dose Route Start Last Admin Trade Name Freq PRN Reason Stop Dose Admin Acetazolamide 250 mg 11/13/19 21:00 11/16/19 09:58 Diamox PO 250 mg TID KHADRA Administration Albuterol/Ipratropium 3 ml 11/15/19 14:30 11/16/19 11:29 Duoneb NEB 3 ml [id number] K[facility]RA Administration Aspirin 81 mg 11/14/19 09:00 11/16/19 09:58 Aspirin Chewable PO 81 mg DAILY [facility]RA Administration Atorvastatin Calcium 20 mg 11/13/19 21:00 11/15/19 20:24 Lipitor PO 20 mg HS K[facility]ADRA Administration Budesonide 0.5 mg 11/13/19 18:30 11/16/19 08:51 Pulmicort Neb Solution INH 0.5 mg BID-RT [facility]RA Administration Famotidine 20 mg 11/13/19 21:00 11/16/19 09:58 Pepcid PO 20 mg BID [facility]RA Administration Finasteride 5 mg 11/14/19 09:00 11/16/19 09:58 Proscar PO 5 mg DAILY [facility] Administration Guaifenesin 600 mg 11/13/19 21:00 11/16/19 09:58 Mucinex PO 600 mg Q12HR K[facility]RA Administration Diltiazem HCl 125 mg/ Sodium 125 mls @ 10 mls/hr 11/13/19 14:45 11/16/19 05: 03 Chloride IVPB 125 mls INF K[facility]RA Administration Protocol 10 MG/HR Levofloxacin 500 mg 11/16/19 06:00 11/16/19 05:55 Levaquin PO Not Given 0600 [facility] Methylprednisolone Sodium Succinate 20 mg 11/15/19 12:00 11/16/19 05:54 Solu-Medrol IVP 20 mg Q6HR K[facility]RA Administration Pantoprazole Sodium 40 mg 11/14/19 09:00 11/16/19 09:59 Protonix IVP 40 mg DAILY [facility]RA Administration Rivaroxaban 20 mg 11/15/19 09:00 11/16/19 09:59 Xarelto PO 20 mg DAILY K[facility]RA Administration Sodium Chloride 10 ml 11/13/19 15:51 11/14/19 10:02 Normal Saline Pf FS 10 ml PRN PRN Administration RECONSTITUTION - Exam General Appearance: NAD, awake alert ENT: normocephalic atraumatic Neck: no JVD Heart: irregular Heart - other findings: rate better controlled in 90-100s. Respiratory - other findings: satting 90s on 6L NC while sitting Gastrointestinal: soft, non-tender, non-distended, normal bowel sounds Extremities: 2+ LE edema Extremities - other findings: unchanged edema Neurological: cranial nerve grossly intact, normal sensation to touch, no focal deficits Psychiatric: normal affect, normal behavior, oriented to person, oriented to place. negative: oriented to time Hosp A/P - Plan #acute on chronic respiratory failure -due to end stage COPD; chronic CO2 retainer -increased oxygen demand; currently 90s on 6L NC -CXR unchanged (11/16) -I/O -0.5L / 24hr; #decompensated HF due to poorly controlled atrial fibrillation w/ RVR / MAT #pulmonary congestion -rate improved 11/16; based on Telemetry remain in MAT / wandering atrial pacemaker #Confusion -this morning, calm, alert and oriented to place and person -ICU/steroid induced delirium/aspiration pneumonitis or developing pneumonia #right infrahilar mass -per patient and family, patient's oncologist aware and pending outpatient workup including PET Plan: -per patient requests dysphagic diet despite being educated by swallow team regarding risks -caution before using Bipap in case of contraindications such as severly decreased consciousness or inability to cooperate - continue diuresis and COPD treatment; appreciate MICU recs -continue cardizem drip -will continue to monitor for signs of aspiration pneumonia that may require antibiotic escalation; dispo/code -DNAR (also as outpatient) -GI - pantoprazole 40mg PO qd -DVT - on xarelto for afib
[2019-11-16] MEDS ORDERED: Potassium Chloride 40 MEQ in Sodium Chloride 0.9% 250 ML 250 ML IVPB SCH (13:15)
--- NOTE | 2019-11-16 15:59 | PDOC.PALCO ---
Palliative Care Consult - Consult Details Requesting Physician: Dr Lagos & Dr Comer Reason for Consult: goals of care, assistance with communication prognosis/ disease Family Members Present: None - Pertinent HPI 79 year old male, O2 dependent who lives independently at home. Known COPD and respiratory failure. Experienced increasing shortness of breath at home starting around 11/10/2019 and called EMS for transport . Stated increase in weakness at home, and the day he called EMS he "could barely talk". After evaluation in the emergency room patient was admitted to [facility] for management of acute on chronic respiratory failure, atrial fibrillation with RVR , acute on chronic diastolic congestive heart failure, COPD exacerbation, Demand ischemia secondary to type II myocardial infarction. - Pertinent PMH O2 dependent at home, end stage COPD, enlarged prostate, HTN, h/o prostate CA, Chronic Atrial Fibrillation, HDL - Social History Smoking Status: Former smoker Smoking: quit greater than 1 year Alcohol Use: none Drug Use History: none Living Situation: independent - Medications MAR Reviewed: Yes - Allergies Allergies/Adverse Reactions: Allergies Allergy/AdvReac Type Severity Reaction Status Date / Time Penicillins Allergy Unknown Severe Verified 05/15/19 19:41 Hives adhesive tape Allergy Verified 05/16/19 01:24 - Subjective Awake, alert. Sitting in chair beside bed. Weak non productive cough. Clavicular wasting. - ROS Constitutional: alert, weakness ENT: other (Denies difficulity swallowing) Respiratory: shortness of breath, shortness of breath with extertion, other ( Cough) Cardiology: other (denies chest pain or palpitations) Gastrointestinal: other (Negative for constipation, diarrhea, nausea, vomiting) Genitourinary: hesitancy, other Musculoskeletal: arthritis/arthralgias Neurological: weakness - Objective Vital Signs: Vital Signs - Most Recent Temp Pulse Resp BP Pulse Ox 97.8 F 112 H 21 H 90 L 11/16/19 15:49 11/16/19 15:18 11/16/19 15:18 11/16/19 15:18 Palliative Performance Scale: 50 - Physical Exam Constitutional: cachectic, emaciated, ill appearing, mild distress HEENT: EOMI, moist MMs, sclera anicteric Respiratory: accessory muscle use, cough, labored respirations, tachypnea Deviation from normal: Advent[place] Cardiovascular: irregular Gastrointestinal: continent Genitourinary: continent Musculoskeletal: edema present Neurology: moves all 4 limbs Skin: cap refill <2 seconds, fragile Psychiatric: normal affect, normal mood - Problem List (1) Palliative care encounter Code(s): Z51.5 - ENCOUNTER FOR PALLIATIVE CARE Current Visit: Yes Status: Acute (2) Physical deconditioning Code(s): R53.81 - OTHER MALAISE Current Visit: Yes Status: Acute (3) COPD (chronic obstructive pulmonary disease) Current Visit: No Status: Acute Qualifiers: COPD type: COPD with acute exacerbation Qualified Code(s): J44.1 - Chronic obstructive pulmonary disease with (acute) exacerbation (4) COPD (chronic obstructive pulmonary disease) with acute bronchitis Code(s): J44.0 - CHR OBSTRUCTIVE PULMON DISEASE WITH (ACUTE) LOWER RESP INFCT Current Visit: No Status: Acute (5) Renal mass Code(s): N28.89 - OTHER SPECIFIED DISORDERS OF KIDNEY AND URETER Current Visit : Yes Status: Acute (6) Lung mass Code(s): R91.8 - OTHER NONSPECIFIC ABNORMAL FINDING OF LUNG FIELD Current Visit: Yes Status: Acute - Plan/Recommendations Plan: Introduced palliative care to patient. Discussed recent decline and history. Mr De Leon was observed to fatigue easily during conversation. States his sister lives in [place] and is wanting him to move in with her, his son lives in [facility] and wants him to move there. Mr De Leon not certain of who he will live with, but states that he knows he can not return home. Confirmed that it has become too difficult to live independently at his home in [place]. *Hope to be able to make an appointment at the [facility] 11/30 for PET and workup as per Tawny Royal RNclay transporter who also visited with patient son over the phone *Will complete OOHDNAR 11/17/2019 *Follow up to revisit goals of care as pronounced decline and compromised respiratory status with continued debility. *May consider increasing Melatonin if sleep does not improve as well as increasing Tesslon Pearles at night when attempting to sleep, taking two 100mg at bedtime. Tawny Royal RNclay transporter also following please refer to her notes in note section. [50] minutes spent on this encounter with >50% of the time in counseling and coordination of care. Thank you for this very appropriate consult.
[2019-11-16] MEDS: Benzonatate 100 MG CAP PO PRN (20:09)
[2019-11-16] MEDS: Atorvastatin Calcium 20 MG TAB PO SCH (20:09)
[2019-11-16] MEDS: Haloperidol Lactate 5 MG/ML VIAL IM PRN (20:10)
[2019-11-17] MEDS: Haloperidol Lactate 5 MG/ML VIAL IM PRN ×2 (02:32→20:53)
[2019-11-17 03:39] LABS: #Lymphocytes 0.2 thou/uL (1.20-3.40); #Monocytes 0.4 thou/uL (0.11-0.59); #Neutrophils 6.7 thou/uL (1.40-6.50); %Eosinophils 0.2 % (0.0-10.0); %Lymphocytes 2.4 % (21.0-51.0); %Monocytes 5.2 % (0.0-10.0); %Neutrophils 92.3 % (42.0-75.0); Hemoglobin 10.1 g/dL (14.0-18.0); Mean Corpuscular HGB CONC 31.6 g/dL (32.0-36.0); Mean Corpuscular Volume 88.6 fL (78.0-98.0); Mean Platelet Volume 7.4 fL (7.4-10.4); Platelet Count 319 thou/uL (130-400); RBC Distribution Width 14.7 % (11.5-14.5); Red Blood Cell (RBC) Count 3.63 mill/uL (4.70-6.10); White Blood Cell (WBC) Count 7.3 thou/uL (4.8-10.8)
[2019-11-17 03:57] LABS: BUN (Urea Nitrogen) 40 mg/dL (8.4-25.7); Calc. Creatinine Clearance 63 mL/min (70-130); Calcium 9.1 mg/dL (7.8-10.44); Estimated GFR-MDRD 73; Glucose 162 mg/dL (83-110); Magnesium 2.6 mg/dL (1.6-2.6)
[2019-11-17 04:06] LABS: Anion Gap 13 mmol/L (10-20); Carbon Dioxide 35 mmol/L (23-31); Chloride 96 mmol/L (98-107); Potassium 3.9 mmol/L (3.5-5.1); Sodium 140 mmol/L (136-145)
[2019-11-17] MEDS: Diltiazem 125 MG in Sodium Chloride 0.9% 100 ML IVPB SCH ×2 (05:15→17:35)
[2019-11-17] MEDS: methylPREDNISolone Sod Succ 40 MG VIAL IVP SCH ×3 (06:03→17:36)
[2019-11-17] MEDS: Budesonide 0.5 MG/2 ML NEB INH SCH ×2 (07:30→19:10)
[2019-11-17] MEDS ORDERED: Digoxin 0.125 MG TAB PO SCH (09:00)
[2019-11-17] MEDS ORDERED: Digoxin 0.5 MG/2 ML AMP SLOW IVP SCH (09:00)
--- NOTE | 2019-11-17 09:21 | PRG ---
DATE OF SERVICE: 11/17/2019 SUBJECTIVE: Mr. De Leon is currently on BiPAP. His heart rate is in the 110 to 130 range, it looks like an atrial tachycardia with variable response. OBJECTIVE: LUNGS: No wheezing. He is tachypneic. VITAL SIGNS: His blood pressure is 146/73. ABDOMEN: Soft and nontender. EXTREMITIES: There is no edema. ASSESSMENT: 1. Atrial tachycardia. 2. Severe chronic obstructive pulmonary disease. 3. Metabolic alkalosis. PLAN: 1. We will give him extra digoxin IV. 2. He is on intravenous diltiazem. 3. He is on acetazolamide. I will continue to follow with you. Job ID: [id number]
[2019-11-17] MEDS: AcetaZOLAMIDE 250 MG TAB PO SCH ×3 (10:29→20:53)
[2019-11-17] MEDS: Aspirin Chewable 81 MG TAB PO SCH (10:29)
[2019-11-17] MEDS: Famotidine 20 MG TAB PO SCH ×2 (10:31→20:53)
[2019-11-17] MEDS: guaiFENesin ER 600 MG TAB PO SCH ×2 (10:32→20:53)
[2019-11-17] MEDS: Pantoprazole 40 MG VIAL IVP SCH (10:32)
[2019-11-17] MEDS: Finasteride 5 MG TAB PO SCH (10:32)
[2019-11-17] MEDS: Rivaroxaban 10 MG TAB PO SCH (10:32)
--- NOTE | 2019-11-17 15:08 | PDOC.HOSPP ---
- Subjective Encounter Date: 11/17/19 Encounter Time: 08:00 Subjective: no overnight events. This morning, feels well and recognizes me. Oriented to place and self, same as yesterday. Has no complaints but becomes tachypnic during short conversation. - Objective Vital Signs & Weight: Vital Signs (12 hours) Temp Pulse Resp Pulse Ox 11/17/19 14:43 111 H 29 H 99 11/17/19 12:05 97.2 F L 11/17/19 10:42 105 H 26 H 95 11/17/19 10:30 104 H 11/17/19 08:00 94 L 11/17/19 07:35 97.7 F 11/17/19 07:26 104 H 32 H 95 11/17/19 03:41 97.6 F 11/17/19 03:34 19 95 Weight Weight 164 lb 12.8 oz Most Recent Monitor Data Heart Rate from ECG 119 NIBP 157/74 NIBP BP-Mean 101 Respiration from ECG 25 SpO2 99 I&O: 11/16/19 11/17/19 11/18/19 06:59 06:59 06:59 Intake Total 1224 1484 Output Total 1775 1100 Balance -551 384 Result Diagrams: 11/17/19 03:30 11/17/19 03:30 Radiology Reviewed by me: Yes (unchanged) EKG Reviewed by me: Yes (telemetry. Remains MAT, this morning in 110s and during conversation 130s) Hospitalist ROS - Review of Systems Constitutional: denies: fever, chills, sweats, weakness, malaise, other Respiratory: reports: shortness of breath, SOB with excertion, sputum. denies: cough, dry, hemoptysis, pleuritic pain, wheezing, other Cardiovascular: reports: edema. denies: chest pain, palpitations, orthopnea, paroxysmal noc. dyspnea, light headedness, other Gastrointestinal: denies: nausea, vomiting, abdominal pain, diarrhea, constipation, melena, hematochezia, other Genitourinary: denies: hematuria Skin: denies: rash, lesions, debo, bruising, other Neurological: denies: weakness, numbness, incoordination, change in speech, confusion - Medication Medications: Active Medications Generic Name Dose Route Start Last Admin Trade Name Freq PRN Reason Stop Dose Admin Acetazolamide 250 mg 11/13/19:00 11/17/19 14:10 Diamox PO 250 mg TID KHADRA Administration Albuterol/Ipratropium 3 ml 11/15/19 14:30 11/17/19 14:43 Duoneb NEB 3 ml [id number] KHADRA Administration Aspirin 81 mg 11/14/19 09:00 11/17/19 10:29 Aspirin Chewable PO 81 mg DAILY KHADRA Administration Atorvastatin Calcium 20 mg 11/13/19 21:00 11/16/19 20:09 Lipitor PO 20 mg HS KHADRA Administration Benzonatate 100 mg 11/13/19 14:39 11/16/19 20:09 Tessalon PO 100 mg Q6H PRN Administration Cough Budesonide 0.5 mg 11/13/19 18:30 11/17/19 07:30 Pulmicort Neb Solution INH 0.5 mg BID-RT KHADRA Administration Famotidine 20 mg 11/13/19 21:00 11/17/19 10:31 Pepcid PO 20 mg BID KHADRA Administration Finasteride 5 mg 11/14/19 09:00 11/17/19 10:32 Proscar PO 5 mg DAILY KHADRA Administration Haloperidol Lactate 1 mg 11/16/19 19:33 11/17/19 02:32 Haldol IM 1 mg Q6H PRN Administration . Diltiazem HCl 125 mg/ Sodium 125 mls @ 10 mls/hr 11/13/19 14:45 11/17/19 05: 15 Chloride IVPB 125 mls INF KHADRA Administration Protocol 10 MG/HR Levofloxacin 500 mg 11/16/19 06:00 11/17/19 06:03 Levaquin PO 500 mg 0600 KHADRA Administration Melatonin 1 mg 11/15/19 13:23 11/16/19 20:09 Melatonin PO 1 mg HS PRN Administration Insomnia Methylprednisolone Sodium Succinate 20 mg 11/15/19 12:00 11/17/19 14:17 Solu-Medrol IVP 20 mg Q6HR KHADRA Administration Pantoprazole Sodium 40 mg 11/14/19 09:00 11/17/19 10:32 Protonix IVP 40 mg DAILY KHADRA Administration Rivaroxaban 20 mg 11/15/19 09:00 11/17/19 10:32 Xarelto PO 20 mg DAILY KHADRA Administration Sodium Chloride 10 ml 11/13/19 15:51 11/14/19 10:02 Normal Saline Pf FS 10 ml PRN PRN Administration RECONSTITUTION - Exam General Appearance: NAD, awake alert Neck: no JVD Heart: no murmur, no gallops, no rubs, normal peripheral pulses, irregular Heart - other findings: tachycardic Respiratory: no wheezes, no ronchi, normal chest expansion, tachypneic (becomes tachypnic on conversation) Respiratory - other findings: lung sound equal, inspiratory rales mostly lower mendiola Gastrointestinal: soft, non-tender, non-distended, normal bowel sounds Extremities: 2+ LE edema Extremities - other findings: unchanged Neurological: cranial nerve grossly intact Psychiatric: normal affect, normal behavior, oriented to person, oriented to place Hosp A/P - Plan #acute on chronic respiratory failure -due to end stage COPD; chronic CO2 retainer -increased oxygen demand; currently 90s on 6L NC -CXR unchanged (11/16) -I/O -0.5L / 24hr; #decompensated HF due to poorly controlled atrial fibrillation w/ RVR / MAT #pulmonary congestion -rate improved 11/16; based on Telemetry remain in MAT / wandering atrial pacemaker #Confusion -this morning, calm, alert and oriented to place and person -ICU/steroid induced delirium/aspiration pneumonitis or developing pneumonia #right infrahilar mass -per patient and family, patient's oncologist aware and pending outpatient workup including PET Plan: -per patient requests dysphagic diet despite being educated by swallow team regarding risks -caution before using Bipap in case of contraindications such as severly decreased consciousness or inability to cooperate - continue diuresis and COPD treatment; appreciate MICU recs -continue cardizem drip -will continue to monitor for signs of aspiration pneumonia that may require antibiotic escalation; dispo/code -DNAR (also as outpatient) -GI - pantoprazole 40mg PO qd -DVT - on xarelto for afib
--- NOTE | 2019-11-17 20:12 | PRG ---
DATE OF SERVICE: 11/17/2019 SUBJECTIVE: Hernandez De Leon was sitting up in a chair this morning. OBJECTIVE: GENERAL: He was in no distress. VITAL SIGNS: He is afebrile, heart rate is 114, respiratory rate is 20, and oximetry is 100% on 4 L cannula, blood pressure 133/86. LUNGS: Clear. HEART: Regular rhythm. ABDOMEN: Soft. IMPRESSION: 1. Advanced obstructive lung disease, on oxygen for 10 years. 2. New lung mass, likely malignant. 3. New renal masses, likely malignant. 4. Deconditioning. He is functionally older than his age. I am not sure he is a candidate for any therapy of anything, marginal candidate for workup of these lesions, but once again wants to have this done at the [facility]. 5. He appears to be stable at this point in time. We will switch him to p.o. steroids in the morning. Job ID: [id number]
[2019-11-17] MEDS: Melatonin 3 MG TAB PO PRN (20:53)
[2019-11-17] MEDS: Benzonatate 100 MG CAP PO PRN (20:53)
[2019-11-17] MEDS: Atorvastatin Calcium 20 MG TAB PO SCH (20:53)
[2019-11-18] MEDS: Diltiazem 125 MG in Sodium Chloride 0.9% 100 ML IVPB SCH (03:27)
[2019-11-18 03:51] LABS: #Basophils 0.1 thou/uL (0.0-0.2); #Lymphocytes 0.3 thou/uL (1.20-3.40); #Monocytes 0.6 thou/uL (0.11-0.59); #Neutrophils 6.7 thou/uL (1.40-6.50); %Basophils 0.7 % (0.0-1.0); %Eosinophils 0.3 % (0.0-10.0); %Lymphocytes 3.8 % (21.0-51.0); %Monocytes 7.3 % (0.0-10.0); %Neutrophils 87.8 % (42.0-75.0); Hemoglobin 10.6 g/dL (14.0-18.0); Mean Corpuscular HGB CONC 31.4 g/dL (32.0-36.0); Mean Corpuscular Hemoglobin 27.7 pg (27.0-31.0); Mean Corpuscular Volume 88.1 fL (78.0-98.0); Mean Platelet Volume 7.8 fL (7.4-10.4); Platelet Count 340 thou/uL (130-400); RBC Distribution Width 14.7 % (11.5-14.5); Red Blood Cell (RBC) Count 3.81 mill/uL (4.70-6.10); White Blood Cell (WBC) Count 7.6 thou/uL (4.8-10.8)
[2019-11-18 04:16] LABS: Anion Gap 10 mmol/L (10-20); BUN (Urea Nitrogen) 36 mg/dL (8.4-25.7); Calc. Creatinine Clearance 80 mL/min (70-130); Calcium 8.9 mg/dL (7.8-10.44); Carbon Dioxide 36 mmol/L (23-31); Chloride 95 mmol/L (98-107); Estimated GFR-MDRD Greater than 90; Glucose 146 mg/dL (83-110); Magnesium 2.2 mg/dL (1.6-2.6); Sodium 137 mmol/L (136-145)
[2019-11-18] MEDS: Budesonide 0.5 MG/2 ML NEB INH SCH ×2 (06:27→19:00)
[2019-11-18] MEDS: Aspirin Chewable 81 MG TAB PO SCH (07:48)
[2019-11-18] MEDS: Rivaroxaban 10 MG TAB PO SCH (07:48)
[2019-11-18] MEDS: AcetaZOLAMIDE 250 MG TAB PO SCH ×3 (07:48→20:22)
[2019-11-18] MEDS: Famotidine 20 MG TAB PO SCH ×2 (07:48→20:22)
[2019-11-18] MEDS: Pantoprazole 40 MG VIAL IVP SCH (07:48)
[2019-11-18] MEDS: predniSONE 20 MG TAB PO SCH (07:49)
[2019-11-18] MEDS: Finasteride 5 MG TAB PO SCH (07:49)
[2019-11-18] MEDS: guaiFENesin ER 600 MG TAB PO SCH ×2 (07:51→20:22)
--- NOTE | 2019-11-18 08:14 | RAD ---
Portable frontal chest radiograph: 11/18/2019 COMPARISON: 11/16/2019 HISTORY: Hypoxic respiratory distress FINDINGS: There is a rounded masslike opacity in the right infrahilar region measuring 8.6 cm in cran iocaudal dimension. Coarse increased linear interstitial density with pulmonary hyperinflation noted. Patchy opacity in the left base noted suggesting infectious pneumonitis, aspiration, and/or vo lume loss. Atherosclerotic calcific aortic arch noted. IMPRESSION: No significant interval change. Patchy opacity in the left base persists. Infrahilar mass lesion again noted on the right, suspicious for malignancy. CT examination of the chest recommended. CODE T
[2019-11-18] MEDS ORDERED: Digoxin 0.5 MG/2 ML AMP SLOW IVP SCH (09:00)
--- NOTE | 2019-11-18 09:16 | PRG ---
DATE OF SERVICE: 11/18/2019 SUBJECTIVE: Mr. De Leon is sitting up in the chair. He seems to be breathing somewhat better. OBJECTIVE: VITAL SIGNS: His pulse is 90 to 110, it is irregular. LUNGS: Some rhonchi. I do not hear any wheezing. CARDIAC: Tachycardic for rest. ABDOMEN: Soft and nontender. EXTREMITIES: No edema. ASSESSMENT: 1. Multifocal atrial tachycardia, rate better controlled. 2. Severe chronic obstructive pulmonary disease. PLAN: 1. Continue current medical regimen. 2. Consider changing to oral Cardizem tomorrow. Job ID: [id number]
--- NOTE | 2019-11-18 19:12 | PDOC.HOSPP ---
- Subjective Encounter Date: 11/18/19 Encounter Time: 09:00 Subjective: no overnight events. This morning, sitting comfortably in chair and has no complaints. As per MICU and cardiology recommendation will attempt to deescalate from IV steroids and cardizem to PO tomorrow. - Objective Vital Signs & Weight: Vital Signs (12 hours) Temp Pulse Resp Pulse Ox 11/18/19 18:58 115 H 30 H 95 11/18/19 15:40 97.8 F 11/18/19 15:02 115 H 11/18/19 15:01 117 H 32 H 100 11/18/19 11:26 97.6 F 11/18/19 10:46 108 H 28 H 99 11/18/19 10:40 105 H 11/18/19 08:00 96 11/18/19 07:20 97.2 F L Weight Weight 161 lb 8 oz Most Recent Monitor Data Heart Rate from ECG 117 NIBP 158/80 NIBP BP-Mean 106 Respiration from ECG 35 SpO2 99 I&O: 11/17/19 11/18/19 11/19/19 06:59 06:59 06:59 Intake Total 1484 1500 670 Output Total 1100 900 575 Balance 384 600 95 Result Diagrams: 11/18/19 03:34 11/18/19 03:34 Hospitalist ROS - Review of Systems Constitutional: denies: fever, chills, sweats, weakness, malaise, other Respiratory: reports: cough, dry, SOB with excertion. denies: shortness of breath, hemoptysis, pleuritic pain, sputum, wheezing, other Cardiovascular: reports: edema. denies: chest pain, palpitations, orthopnea, paroxysmal noc. dyspnea, light headedness, other Gastrointestinal: denies: nausea, vomiting, abdominal pain, diarrhea, constipation, melena, hematochezia, other Genitourinary: denies: hematuria Neurological: denies: weakness, numbness, incoordination, change in speech, confusion, seizures, other - Medication Medications: Active Medications Generic Name Dose Route Start Last Admin Trade Name Freq PRN Reason Stop Dose Admin Acetazolamide 250 mg 11/13/19 21:00 11/18/19 16:20 Diamox PO 250 mg TID KHADRA Administration Albuterol/Ipratropium 3 ml 11/15/19 14:30 11/18/19 18:58 Duoneb NEB 3 ml [id number] KHADRA Administration Aspirin 81 mg 11/14/19 09:00 11/18/19 07:48 Aspirin Chewable PO 81 mg DAILY KHADRA Administration Atorvastatin Calcium 20 mg 11/13/19 21:00 11/17/19 20:53 Lipitor PO 20 mg HS KHADRA Administration Benzonatate 100 mg 11/13/19 14:39 11/17/19 20:53 Tessalon PO 100 mg Q6H PRN Administration Cough Budesonide 0.5 mg 11/13/19 18:30 11/18/19 19:00 Pulmicort Neb Solution INH 0.5 mg BID-RT KHADRA Administration Famotidine 20 mg 11/13/19 21:00 11/18/19 07:48 Pepcid PO 20 mg BID KHADRA Administration Finasteride 5 mg 11/14/19 09:00 11/18/19 07:49 Proscar PO 5 mg DAILY KHADRA Administration Guaifenesin 600 mg 11/17/19 21:00 11/18/19 07:51 Mucinex PO 600 mg Q12HR KHADRA Administration Haloperidol Lactate 1 mg 11/16/19 19:33 11/17/19 20:53 Haldol IM 1 mg Q6H PRN Administration . Diltiazem HCl 125 mg/ Sodium 125 mls @ 10 mls/hr 11/13/19 14:45 11/18/19 03: 27 Chloride IVPB 125 mls INF KHADRA Administration Protocol 10 MG/HR Levofloxacin 500 mg 11/16/19 06:00 11/18/19 06:22 Levaquin PO 500 mg 0600 KHADRA Administration Melatonin 3 mg 11/17/19 19:11 11/17/19 20:53 Melatonin PO 3 mg HSPRN PRN Administration Insomnia Pantoprazole Sodium 40 mg 11/14/19 09:00 11/18/19 07:48 Protonix IVP 40 mg DAILY KHADRA Administration Prednisone 40 mg 11/18/19 08:00 11/18/19 07:49 Prednisone PO 40 mg QAM-WM KHADRA Administration Rivaroxaban 20 mg 11/15/19 09:00 11/18/19 07:48 Xarelto PO 20 mg DAILY KHADRA Administration Sodium Chloride 10 ml 11/13/19 15:51 11/14/19 10:02 Normal Saline Pf FS 10 ml PRN PRN Administration RECONSTITUTION - Exam General Appearance: NAD, awake alert ENT: normocephalic atraumatic Neck: no JVD Heart: no gallops, normal peripheral pulses, irregular Heart - other findings: HR mildly improved to 100-110s Respiratory: CTAB, no wheezes, no ronchi Respiratory - other findings: mild diffuse insipiratory rales Gastrointestinal: soft, non-tender, non-distended, normal bowel sounds Extremities: 2+ LE edema Extremities - other findings: unchanged Neurological: cranial nerve grossly intact Musculoskeletal: normal tone, normal strength Psychiatric: normal affect, normal behavior, oriented to person, oriented to place. negative: oriented to time Hosp A/P - Plan #acute on chronic respiratory failure -due to end stage COPD; chronic CO2 retainer -increased oxygen demand; currently 90s on 6L NC (11/16) -> high 90s on 4L NC -CXR unchanged (11/16, 11/17) #decompensated HF due to poorly controlled atrial fibrillation w/ RVR / MAT #pulmonary congestion -rate improved 11/16; based on Telemetry remain in MAT / wandering atrial pacemaker -> continued HR improvement (11/17) #Confusion -this morning, calm, alert and oriented to place and person -ICU/steroid induced delirium/aspiration pneumonitis or developing pneumonia -improved in frequency #right infrahilar mass -per patient and family, patient's oncologist aware and pending outpatient workup including PET Plan: -per cardiology and MICU, will likely change IV steroid and cardizem to oral () -caution before using Bipap in case of contraindications such as severly decreased consciousness or inability to cooperate - continue COPD treatment; appreciate MICU recs dispo/code -DNAR (also as outpatient) -GI - pantoprazole 40mg PO qd -DVT - on xarelto for afib
[2019-11-18] MEDS: Melatonin 3 MG TAB PO PRN (20:21)
--- NOTE | 2019-11-18 20:21 | PRG ---
DATE OF SERVICE: SUBJECTIVE: Mr. De Leon says he is getting close to his baseline. He is still in atrial fibrillation with heart rate of about 112 to 115. OBJECTIVE: VITAL SIGNS: He is afebrile; respiratory rates in the 20s; oximetry is 95% on 4 L cannula; and blood pressure 178/101 this evening, earlier. LUNGS: Distant with end-expiratory wheezes. HEART: Regular rhythm. ABDOMEN: Soft. EXTREMITIES: Without asymmetry. LABORATORY DATA: White count 7.6, hemoglobin 10.6, and platelets 340. Sodium 137, potassium 4, chloride 95, bicarb 36, and creatinine 0.77. IMPRESSION: 1. End-stage chronic obstructive pulmonary disease, on oxygen for 10 years. 2. New lung mass, quite large, likely malignant. 3. New renal masses. 4. Atrial fibrillation with rapid ventricular response. Once his atrial fibrillation rate is controlled, he can go home. In my opinion, the goal should be rate control and nothing helped. His prognosis short-term is extremely poor in my opinion. Job ID: [id number]
[2019-11-18] MEDS: Atorvastatin Calcium 20 MG TAB PO SCH (20:22)
[2019-11-19 04:10] LABS: Anion Gap 9 mmol/L (10-20); BUN (Urea Nitrogen) 35 mg/dL (8.4-25.7); Calc. Creatinine Clearance 80 mL/min (70-130); Calcium 8.7 mg/dL (7.8-10.44); Carbon Dioxide 34 mmol/L (23-31); Chloride 96 mmol/L (98-107); Estimated GFR-MDRD Greater than 90; Glucose 107 mg/dL (83-110); Potassium 3.7 mmol/L (3.5-5.1); Sodium 135 mmol/L (136-145)
[2019-11-19] MEDS: Diltiazem 125 MG in Sodium Chloride 0.9% 100 ML IVPB SCH (06:22)
[2019-11-19] MEDS: Budesonide 0.5 MG/2 ML NEB INH SCH ×2 (07:48→19:04)
[2019-11-19] MEDS: predniSONE 20 MG TAB PO SCH (09:02)
[2019-11-19] MEDS: Pantoprazole 40 MG VIAL IVP SCH (09:03)
[2019-11-19] MEDS: Finasteride 5 MG TAB PO SCH (09:03)
[2019-11-19] MEDS: AcetaZOLAMIDE 250 MG TAB PO SCH ×3 (09:03→20:39)
[2019-11-19] MEDS: Digoxin 0.125 MG TAB PO SCH (09:03)
[2019-11-19] MEDS: guaiFENesin ER 600 MG TAB PO SCH ×2 (09:04→20:39)
[2019-11-19] MEDS: Famotidine 20 MG TAB PO SCH ×2 (09:04→20:39)
[2019-11-19] MEDS: Aspirin Chewable 81 MG TAB PO SCH (09:04)
[2019-11-19] MEDS: Rivaroxaban 10 MG TAB PO SCH (09:04)
--- NOTE | 2019-11-19 17:11 | PDOC.HOSPP ---
- Subjective Encounter Date: 11/19/19 Encounter Time: 08:00 Subjective: no overnight events. This morning, sitting comfortably in bed and has no complaints. HR has been in 85-95s. Attempting to transition to oral cardizem as per cardiology recs. - Objective Vital Signs & Weight: Vital Signs (12 hours) Temp Pulse Resp Pulse Ox 11/19/19 15:58 98.0 F 11/19/19 15:24 111 H 29 H 98 11/19/19 11:18 97.6 F 11/19/19 11:07 104 H 19 97 11/19/19 09:03 117 H 11/19/19 08:00 95 11/19/19 07:49 98 11/19/19 07:47 98 33 H 98 11/19/19 07:12 97.8 F Weight Weight 161 lb 8 oz Most Recent Monitor Data Heart Rate from ECG 102 NIBP 135/70 NIBP BP-Mean 91 Respiration from ECG 33 SpO2 97 I&O: 11/18/19 11/19/19 11/20/19 06:59 06:59 06:59 Intake Total 1500 1020 Output Total 900 925 300 Balance 600 95 -300 Result Diagrams: 11/18/19 03:34 11/19/19 03:28 Hospitalist ROS - Review of Systems Constitutional: denies: fever, chills, sweats, weakness, malaise, other Respiratory: reports: cough, dry, SOB with excertion. denies: shortness of breath, pleuritic pain, sputum, wheezing Cardiovascular: denies: chest pain, palpitations, orthopnea, paroxysmal noc. dyspnea, edema, light headedness, other Gastrointestinal: denies: nausea, vomiting, abdominal pain, diarrhea, constipation, melena, hematochezia, other Genitourinary: denies: hematuria Neurological: denies: weakness, numbness, incoordination, change in speech, confusion - Medication Medications: Active Medications Generic Name Dose Route Start Last Admin Trade Name Freq PRN Reason Stop Dose Admin Acetazolamide 250 mg 11/13/19 21:00 11/19/19 15:13 Diamox PO 250 mg TID KHADRA Administration Albuterol/Ipratropium 3 ml 11/15/19 14:30 11/19/19 15:24 Duoneb NEB 3 ml [id number] KHADRA Administration Aspirin 81 mg 11/14/19 09:00 11/19/19 09:04 Aspirin Chewable PO 81 mg DAILY KHADRA Administration Atorvastatin Calcium 20 mg 11/13/19 21:00 11/18/19 20:22 Lipitor PO 20 mg HS KHADRA Administration Benzonatate 100 mg 11/13/19 14:39 11/17/19 20:53 Tessalon PO 100 mg Q6H PRN Administration Cough Budesonide 0.5 mg 11/13/19 18:30 11/19/19 07:48 Pulmicort Neb Solution INH 0.5 mg BID-RT KHADRA Administration Digoxin 0.125 mg 11/19/19 09:00 11/19/19 09:03 Lanoxin PO 0.125 mg DAILY KHADRA Administration Diltiazem HCl 90 mg 11/19/19 12:00 11/19/19 13:00 Cardizem PO 90 mg Q6H KHADRA Administration Famotidine 20 mg 11/13/19 21:00 11/19/19 09:04 Pepcid PO 20 mg BID KHADRA Administration Finasteride 5 mg 11/14/19 09:00 11/19/19 09:03 Proscar PO 5 mg DAILY KHADRA Administration Guaifenesin 600 mg 11/17/19 21:00 11/19/19 09:04 Mucinex PO 600 mg Q12HR KHADRA Administration Haloperidol Lactate 1 mg 11/16/19 19:33 11/17/19 20:53 Haldol IM 1 mg Q6H PRN Administration . Diltiazem HCl 125 mg/ Sodium 125 mls @ 10 mls/hr 11/13/19 14:45 11/19/19 06: 22 Chloride IVPB 125 mls INF KHADRA Administration Protocol 10 MG/HR Levofloxacin 500 mg 11/16/19 06:00 11/19/19 05:55 Levaquin PO 500 mg 0600 KHADRA Administration Melatonin 3 mg 11/17/19 19:11 11/18/19 20:21 Melatonin PO 3 mg HSPRN PRN Administration Insomnia Pantoprazole Sodium 40 mg 11/14/19 09:00 11/19/19 09:03 Protonix IVP 40 mg DAILY KHADRA Administration Prednisone 40 mg 11/18/19 08:00 11/19/19 09:02 Prednisone PO 40 mg QAM-WM KHADRA Administration Rivaroxaban 20 mg 11/15/19 09:00 11/19/19 09:04 Xarelto PO 20 mg DAILY KHADRA Administration Sodium Chloride 10 ml 11/13/19 15:51 11/14/19 10:02 Normal Saline Pf FS 10 ml PRN PRN Administration RECONSTITUTION - Exam General Appearance: NAD, awake alert Neck: no JVD Heart: irregular Heart - other findings: MAT in 90s-95s based on telemetry Respiratory: CTAB, no wheezes, no ronchi Respiratory - other findings: mild bibasilari inspiraotry rales; satting high 90s on 4L NC Gastrointestinal: soft, non-tender, non-distended, normal bowel sounds Extremities: 2+ LE edema Extremities - other findings: unchanged edema Neurological: cranial nerve grossly intact Musculoskeletal: normal tone, normal strength Psychiatric: normal affect, normal behavior, oriented to person, oriented to place Hosp A/P - Plan #acute on chronic respiratory failure -increased oxygen demand; currently 90s on 6L NC (11/16) -> high 90s on 4L NC (, 11/18) #MAT #pulmonary congestion -rate improved 11/16; based on Telemetry remain in MAT / wandering atrial pacemaker -> continued HR improvement (11/17) -> same on 11/18 #Confusion (improved) -ICU/steroid induced delirium likely culprit -improved in frequency #right infrahilar mass -per patient and family, patient's oncologist aware and pending outpatient workup including PET Plan: -patient has been improving and HR relatively stable based on telemetry; attempting to transition from cardizem drip to oral. Started cardizem 90mg PO q6h based on cardizem rate of 10mg/hr -caution before using Bipap in case of contraindications such as severly decreased consciousness or inability to cooperate - continue COPD treatment; per MICU, transitioned to oral prednisone - prognosis is poor; if remains stable after transitioning to oral cardizem may be able to transfer to telemetry floor. dispo/code -DNAR (also as outpatient) -GI - pantoprazole 40mg IVP qd -DVT - on xarelto for afib
--- NOTE | 2019-11-19 17:45 | PRG ---
DATE OF SERVICE: 11/19/2019 SUBJECTIVE: Hernandez De Leon has no new complaints. He really had not ambulated much. I will check in to see if he is still having physical therapy. OBJECTIVE: VITAL SIGNS: He is afebrile. Heart rate is 111, respiratory rate is 29, oximetry is 98%, blood pressure 135/70. He has been transitioning into p.o. medication for his atrial fibrillation. LUNGS: Distant, clear. HEART: Regular rhythm. ABDOMEN: Soft. IMPRESSION: 1. Chronic obstructive pulmonary disease exacerbation. 2. Lung mass. 3. Renal masses. 4. Atrial fibrillation. 5. Deconditioning. 6. Chronic hypoxemic respiratory failure, on oxygen at home. 7. Anemia with normal mean corpuscular volume. PLAN: Continue supportive care. Job ID: [id number]
[2019-11-19] MEDS: Atorvastatin Calcium 20 MG TAB PO SCH (20:39)
[2019-11-19] MEDS: Melatonin 3 MG TAB PO PRN (20:40)
[2019-11-20 03:52] LABS: Anion Gap 7 mmol/L (10-20); BUN (Urea Nitrogen) 29 mg/dL (8.4-25.7); Calc. Creatinine Clearance 86 mL/min (70-130); Calcium 8.6 mg/dL (7.8-10.44); Carbon Dioxide 35 mmol/L (23-31); Chloride 95 mmol/L (98-107); Estimated GFR-MDRD Greater than 90; Glucose 123 mg/dL (83-110); Magnesium 2.3 mg/dL (1.6-2.6); Potassium 3.6 mmol/L (3.5-5.1); Sodium 133 mmol/L (136-145)
[2019-11-20] MEDS: Budesonide 0.5 MG/2 ML NEB INH SCH ×2 (07:00→18:41)
[2019-11-20] MEDS: AcetaZOLAMIDE 250 MG TAB PO SCH ×3 (09:03→20:59)
[2019-11-20] MEDS: Digoxin 0.125 MG TAB PO SCH (09:03)
[2019-11-20] MEDS: predniSONE 20 MG TAB PO SCH (09:03)
[2019-11-20] MEDS: Pantoprazole 40 MG VIAL IVP SCH (09:03)
[2019-11-20] MEDS: guaiFENesin ER 600 MG TAB PO SCH ×2 (09:04→20:59)
[2019-11-20] MEDS: Famotidine 20 MG TAB PO SCH ×2 (09:04→20:59)
[2019-11-20] MEDS: Rivaroxaban 10 MG TAB PO SCH (09:04)
[2019-11-20] MEDS: Finasteride 5 MG TAB PO SCH (09:04)
[2019-11-20] MEDS: Aspirin Chewable 81 MG TAB PO SCH (09:04)
[2019-11-20] MEDS ORDERED: Potassium Chloride 20 MEQ TAB PO SCH (10:09)
--- NOTE | 2019-11-20 12:23 | PRG ---
DATE OF SERVICE: 11/20/2019 OBJECTIVE: VITAL SIGNS: Hernandez De Leon's heart rate is now less than 100. When I saw him this morning, respiratory rates in the teens, oximetry is 100% on 4 L cannula, and no recorded blood pressures in the vital signs. LUNGS: Clear and distant. HEART: Regular rhythm. ABDOMEN: Soft. IMPRESSION AND PLAN: 1. Atrial fibrillation with a controlled ventricular response now. 2. Lung mass. 3. Renal masses. 4. Advanced chronic obstructive pulmonary disease with chronic hypoxemic respiratory failure, on oxygen at home. His chronic obstructive pulmonary disease exacerbation, I think is resolving. Once his heart rate is documented to be stable and controlled, in my opinion, he is a candidate to be discharged to home. Family and the patient followed at the [facility]. We will sign off. Job ID: [id number]
[2019-11-20 14:47] VITALS: BMI 21.9
[2019-11-20] MEDS: Atorvastatin Calcium 20 MG TAB PO SCH (20:59)
[2019-11-20] MEDS: Melatonin 3 MG TAB PO PRN (21:06)
[2019-11-20] MEDS: Acetaminophen 325 MG TAB PO PRN (21:06)
--- NOTE | 2019-11-20 23:58 | PDOC.HOSPP ---
- Subjective Encounter Date: 11/20/19 Encounter Time: 09:00 Subjective: No overnight events. HR 90s-100s after transition to oral cardizem, doing well and thought would be able to transfer to telemetry floor however per nurse, requires episodic Bipap at night. This morning, feels well and has no complaints. based on telemetry, mostly atrial fibrillation with stretches of MAT. - Objective Vital Signs & Weight: Vital Signs (12 hours) Temp Pulse Pulse Pulse Resp BP BP 11/20/19 23:50 97.7 F 11/20/19 21:53 82 18 11/20/19 20:00 97.8 F 11/20/19 18:40 86 20 11/20/19 13:52 90 26 H 11/20/19 12:30 117 H 105 H 120/67 118/61 Pulse Ox Pulse Ox Pulse Ox 11/20/19 23:50 11/20/19 21:53 100 11/20/19 20:00 99 11/20/19 18:40 100 11/20/19 13:52 11/20/19 12:30 100 100 Weight Admit Weight 169 lb 11.2 oz Weight 161 lb 8 oz Most Recent Monitor Data Heart Rate from ECG 99 NIBP 130/55 NIBP BP-Mean 80 Respiration from ECG 22 SpO2 97 I&O: 11/19/19 11/20/19 11/21/19 06:59 06:59 06:59 Intake Total 1020 1380 600 Output Total 925 600 Balance 95 780 600 Result Diagrams: 11/18/19 03:34 11/20/19 03:15 Hospitalist ROS - Review of Systems Constitutional: denies: fever, chills, sweats, weakness, malaise, other Respiratory: reports: SOB with excertion. denies: cough, dry, shortness of breath, pleuritic pain, sputum, wheezing Cardiovascular: reports: orthopnea, paroxysmal noc. dyspnea, edema. denies: chest pain, palpitations Gastrointestinal: denies: nausea, vomiting, abdominal pain, diarrhea, constipation Genitourinary: denies: hematuria Skin: reports: rash (complains of buttock pain) Neurological: denies: weakness, numbness, incoordination - Medication Medications: Active Medications Generic Name Dose Route Start Last Admin Trade Name Freq PRN Reason Stop Dose Admin Acetaminophen 650 mg 11/13/19 14:39 11/20/19 21:06 Tylenol PO 650 mg Q4H PRN Administration Headache/Fever/Mild Pain (1-3) Acetazolamide 250 mg 11/13/19 21:00 11/20/19 20:59 Diamox PO 250 mg TID KHADRA Administration Albuterol/Ipratropium 3 ml 11/15/19 14:30 11/20/19 21:53 Duoneb NEB 3 ml [id number] KHADRA Administration Aspirin 81 mg 11/14/19 09:00 11/20/19 09:04 Aspirin Chewable PO 81 mg DAILY KHADRA Administration Atorvastatin Calcium 20 mg 11/13/19 21:00 11/20/19 20:59 Lipitor PO 20 mg HS KHADRA Administration Benzonatate 100 mg 11/13/19 14:39 11/17/19 20:53 Tessalon PO 100 mg Q6H PRN Administration Cough Budesonide 0.5 mg 11/13/19 18:30 11/20/19 18:41 Pulmicort Neb Solution INH 0.5 mg BID-RT KHADRA Administration Digoxin 0.125 mg 11/19/19 09:00 11/20/19 09:03 Lanoxin PO 0.125 mg DAILY KHADRA Administration Diltiazem HCl 90 mg 11/19/19 12:00 11/20/19 23:22 Cardizem PO 90 mg Q6H KHADRA Administration Famotidine 20 mg 11/13/19 21:00 11/20/19 20:59 Pepcid PO 20 mg BID KHADRA Administration Finasteride 5 mg 11/14/19 09:00 11/20/19 09:04 Proscar PO 5 mg DAILY KHADRA Administration Guaifenesin 600 mg 11/17/19 21:00 11/20/19 20:59 Mucinex PO 600 mg Q12HR KHADRA Administration Haloperidol Lactate 1 mg 11/16/19 19:33 11/17/19 20:53 Haldol IM 1 mg Q6H PRN Administration . Levofloxacin 500 mg 11/16/19 06:00 11/20/19 05:44 Levaquin PO 500 mg 0600 KHADRA Administration Melatonin 3 mg 11/17/19 19:11 11/20/19 21:06 Melatonin PO 3 mg HSPRN PRN Administration Insomnia Pantoprazole Sodium 40 mg 11/14/19 09:00 11/20/19 09:03 Protonix IVP 40 mg DAILY KHADRA Administration Prednisone 40 mg 11/18/19 08:00 11/20/19 09:03 Prednisone PO 40 mg QAM-WM KHADRA Administration Rivaroxaban 20 mg 11/15/19 09:00 11/20/19 09:04 Xarelto PO 20 mg DAILY KHADRA Administration Sodium Chloride 10 ml 11/13/19 15:51 11/14/19 10:02 Normal Saline Pf FS 10 ml PRN PRN Administration RECONSTITUTION - Exam General Appearance: NAD, awake alert Neck: no JVD, no lymphadenopathy Heart: no murmur, no gallops, irregular Heart - other findings: rate ~ 100s Respiratory: no wheezes, no ronchi, no tachypnea (unless walks a few steps or speaks several sentences) Respiratory - other findings: inspiratory rales throughout Gastrointestinal: soft, non-tender, non-distended, normal bowel sounds Extremities: 2+ LE edema Psychiatric: normal affect, normal behavior, oriented to person, oriented to place. negative: oriented to time Hosp A/P - Plan #acute on chronic respiratory failure -increased oxygen demand; currently 90s on 6L NC (11/16) -> high 90s on 4L NC (, 11/18) -per nurse, still requires episodic Bipap at night (11/20); will continue to follow prior to transfer to floor #MAT / atrial fibrillation with RVR #pulmonary congestion -rate improved 11/16; based on Telemetry remain in MAT / wandering atrial pacemaker -> continued HR improvement (11/17) -> same on 11/18 -11/20 - transitioned to oral cardizem, rate in 90-100s, about same as on cardizem drip #Confusion (now at baseline) -ICU/steroid induced delirium likely culprit -improved in frequency (11/19) #right infrahilar mass -per patient and family, patient's oncologist aware and pending outpatient workup including PET Plan: -try to avoid Bipap at night; if using Bipap, please record time so that can review telemetry at time -if no Bipap overnight, may be transfered to telemetry assuming MICU and Cardiology agree -caution before using Bipap in case of contraindications such as severly decreased consciousness or inability to cooperate dispo/code -DNAR (also as outpatient) -GI - pantoprazole 40mg IVP qd -DVT - on xarelto for afib
[2019-11-21 04:17] LABS: Anion Gap 8 mmol/L (10-20); BUN (Urea Nitrogen) 25 mg/dL (8.4-25.7); Calc. Creatinine Clearance 89 mL/min (70-130); Calcium 8.6 mg/dL (7.8-10.44); Carbon Dioxide 33 mmol/L (23-31); Chloride 96 mmol/L (98-107); Estimated GFR-MDRD Greater than 90; Glucose 105 mg/dL (83-110); Magnesium 2.1 mg/dL (1.6-2.6); Sodium 133 mmol/L (136-145)
[2019-11-21] MEDS: Budesonide 0.5 MG/2 ML NEB INH SCH ×2 (07:50→18:15)
[2019-11-21] MEDS: Famotidine 20 MG TAB PO SCH ×2 (08:55→20:35)
[2019-11-21] MEDS: Digoxin 0.125 MG TAB PO SCH (08:55)
[2019-11-21] MEDS: Rivaroxaban 10 MG TAB PO SCH (08:55)
[2019-11-21] MEDS: AcetaZOLAMIDE 250 MG TAB PO SCH ×3 (08:55→20:35)
[2019-11-21] MEDS: Aspirin Chewable 81 MG TAB PO SCH (08:55)
[2019-11-21] MEDS: predniSONE 20 MG TAB PO SCH (08:55)
[2019-11-21] MEDS: Finasteride 5 MG TAB PO SCH (08:55)
[2019-11-21] MEDS: Pantoprazole 40 MG VIAL IVP SCH (08:56)
[2019-11-21] MEDS: guaiFENesin ER 600 MG TAB PO SCH ×2 (08:59→20:35)
--- NOTE | 2019-11-21 09:16 | PRG ---
DATE OF SERVICE: 11/21/2019 SUBJECTIVE: Mr. [place] is doing better. He is up in the chair. OBJECTIVE: VITAL SIGNS: His heart rate is in the 90s. LUNGS: Clear. CARDIAC: Irregularly irregular. ABDOMEN: Soft and nontender. EXTREMITIES: No edema. DIAGNOSTIC STUDIES: The rhythm strip is AFib. ASSESSMENT: 1. Atrial fibrillation with a controlled rate. 2. Chronic obstructive pulmonary disease. PLAN: 1. Try to reduce diltiazem to 60 mg q.6 h. in view of the edema. 2. No other recommendations. 3. Continue anticoagulation. Job ID: [id number]
--- NOTE | 2019-11-21 13:29 | PRG ---
DATE OF SERVICE: 11/21/2019 SUBJECTIVE: The patient is up, watching a basketball game. No complaints. OBJECTIVE: VITAL SIGNS: Temperature 98.5, pulse 88, and O2 saturation 100% on nasal cannula. HEENT: Unremarkable. NECK: No JVD. LUNGS: Coarse rhonchi. CARDIAC: S1 and S2, regular. ABDOMEN: Soft. EXTREMITIES: No edema. LABORATORY DATA: Sodium 133, BUN 25, creatinine 0.7, and glucose 105. ASSESSMENT: 1. Lung mass. 2. Chronic obstructive pulmonary disease. 3. Atrial fibrillation. PLAN: His pulmonary status is stable on current medications. He is not a candidate for further workup of the lung mass right now. Job ID: [id number]
--- NOTE | 2019-11-21 18:52 | PDOC.HOSPP ---
- Subjective Encounter Date: 11/21/19 Encounter Time: 10:20 Subjective: Ptg seen for followup re; acute on chronic hypercapnic respiratory failure. Feels better today. Did not use BiPAP last night. - Objective Vital Signs & Weight: Vital Signs (12 hours) Temp Pulse Resp Pulse Ox 11/21/19 18:15 96 16 99 11/21/19 15:28 98.4 F 11/21/19 14:30 98 20 100 11/21/19 11:32 98.5 F 11/21/19 11:11 94 24 H 100 11/21/19 08:55 78 11/21/19 08:00 99 11/21/19 07:50 95 11/21/19 07:49 93 16 95 11/21/19 07:24 97.8 F Weight Admit Weight 169 lb 11.2 oz Weight 170 lb 9 oz Most Recent Monitor Data Heart Rate from ECG 115 NIBP 142/55 NIBP BP-Mean 84 Respiration from ECG 28 SpO2 100 I&O: 11/20/19 11/21/19 11/22/19 06:59 06:59 06:59 Intake Total 7632 528 9095 Output Total 600 650 400 Balance 780 190 650 Result Diagrams: 11/18/19 03:34 11/21/19 03:22 Additional Labs: labs and MARs reviewed by me EKG Reviewed by me: Yes (tele: seth sharpe) Hospitalist ROS - Review of Systems Cardiovascular: denies: chest pain, palpitations, orthopnea, paroxysmal noc. dyspnea, edema, light headedness Gastrointestinal: denies: nausea, vomiting, abdominal pain, diarrhea, constipation, melena, hematochezia - Medication Medications: Active Medications Generic Name Dose Route Start Last Admin Trade Name Freq PRN Reason Stop Dose Admin Acetaminophen 650 mg 11/13/19 14:39 11/20/19 21:06 Tylenol PO 650 mg Q4H PRN Administration Headache/Fever/Mild Pain (1-3) Acetazolamide 250 mg 11/13/19 21:00 11/21/19 14:57 Diamox PO 250 mg TID KHADRA Administration Albuterol/Ipratropium 3 ml 11/15/19 14:30 11/21/19 18:15 Duoneb NEB 3 ml [id number] KHADRA Administration Aspirin 81 mg 11/14/19 09:00 11/21/19 08:55 Aspirin Chewable PO 81 mg DAILY KHADRA Administration Atorvastatin Calcium 20 mg 11/13/19 21:00 11/20/19 20:59 Lipitor PO 20 mg HS KHADRA Administration Benzonatate 100 mg 11/13/19 14:39 11/17/19 20:53 Tessalon PO 100 mg Q6H PRN Administration Cough Budesonide 0.5 mg 11/13/19 18:30 11/21/19 18:15 Pulmicort Neb Solution INH 0.5 mg BID-RT KHADRA Administration Digoxin 0.125 mg 11/19/19 09:00 11/21/19 08:55 Lanoxin PO 0.125 mg DAILY KHADRA Administration Diltiazem HCl 60 mg 11/21/19 12:00 11/21/19 17:36 Cardizem PO 60 mg Q6HR KHADRA Administration Famotidine 20 mg 11/13/19 21:00 11/21/19 08:55 Pepcid PO 20 mg BID KHADRA Administration Finasteride 5 mg 11/14/19 09:00 11/21/19 08:55 Proscar PO 5 mg DAILY KHADRA Administration Guaifenesin 600 mg 11/17/19 21:00 11/21/19 08:59 Mucinex PO 600 mg Q12HR KHADRA Administration Haloperidol Lactate 1 mg 11/16/19 19:33 11/17/19 20:53 Haldol IM 1 mg Q6H PRN Administration . Levofloxacin 500 mg 11/16/19 06:00 11/21/19 05:57 Levaquin PO 500 mg 0600 KHADRA Administration Melatonin 3 mg 11/17/19 19:11 11/20/19 21:06 Melatonin PO 3 mg HSPRN PRN Administration Insomnia Pantoprazole Sodium 40 mg 11/14/19 09:00 11/21/19 08:56 Protonix IVP Not Given DAILY [facility] Prednisone 40 mg 11/18/19 08:00 11/21/19 08:55 Prednisone PO 40 mg QAM-WM KHADRA Administration Rivaroxaban 20 mg 11/15/19 09:00 11/21/19 08:55 Xarelto PO 20 mg DAILY KHADRA Administration Sodium Chloride 10 ml 11/13/19 15:51 11/14/19 10:02 Normal Saline Pf FS 10 ml PRN PRN Administration RECONSTITUTION - Exam General Appearance: awake alert Eye: anicteric sclera ENT: moist mucosa Neck: supple, symmetric Heart: no rubs, irregular Respiratory: CTAB Gastrointestinal: soft, non-tender Extremities: 1+ LE edema Psychiatric: normal affect, normal behavior Hosp A/P - Plan - Plan #acute on chronic hypercapnic respiratory failure -Clinically improved #atrial fibrillation with RVR #pulmonary congestion -pt is now on oral cardizem, continue #acute metabolic encephalopathy -resolved #right infrahilar mass -for workup as outpatient
[2019-11-21] MEDS: Acetaminophen 325 MG TAB PO PRN (20:34)
[2019-11-21] MEDS: Atorvastatin Calcium 20 MG TAB PO SCH (20:35)
[2019-11-21] MEDS: Melatonin 3 MG TAB PO PRN (20:35)
[2019-11-22] MEDS: Budesonide 0.5 MG/2 ML NEB INH SCH ×2 (07:23→18:19)
[2019-11-22] MEDS: Pantoprazole 40 MG VIAL IVP SCH (08:56)
[2019-11-22] MEDS: Rivaroxaban 10 MG TAB PO SCH (09:01)
[2019-11-22] MEDS: guaiFENesin ER 600 MG TAB PO SCH ×2 (09:01→20:12)
[2019-11-22] MEDS: predniSONE 20 MG TAB PO SCH (09:01)
[2019-11-22] MEDS: Famotidine 20 MG TAB PO SCH ×2 (09:01→20:12)
[2019-11-22] MEDS: Aspirin Chewable 81 MG TAB PO SCH (09:02)
[2019-11-22] MEDS: Digoxin 0.125 MG TAB PO SCH (09:02)
[2019-11-22] MEDS: Finasteride 5 MG TAB PO SCH (09:02)
[2019-11-22] MEDS: AcetaZOLAMIDE 250 MG TAB PO SCH ×3 (09:02→20:12)
--- NOTE | 2019-11-22 12:50 | PRG ---
DATE OF SERVICE: 11/22/2019 SUBJECTIVE: Doing well, sitting up in a chair. Did not require BiPAP use last night. PHYSICAL EXAMINATION: VITAL SIGNS: Temperature 97.6, pulse 96, blood pressure 137/58, O2 saturation 100%. HEENT: Unremarkable. NECK: No adenopathy or JVD. LUNGS: Few coarse rhonchi. CARDIAC: S1, S2 regular. ABDOMEN: Soft. EXTREMITIES: No edema. ASSESSMENT: 1. Stable pulmonary status. 2. Chronic obstructive pulmonary disease. 3. Lung mass. 4. Atrial fibrillation. PLAN: Continue present care. Job ID: [id number]
--- NOTE | 2019-11-22 15:45 | PDOC.HOSPP ---
- Subjective Encounter Date: 11/22/19 Encounter Time: 09:20 Subjective: Pt seen for followup re; respiratory failure. States he feels better. - Objective Vital Signs & Weight: Vital Signs (12 hours) Temp Pulse Resp Pulse Ox 11/22/19 15:23 98.0 F 11/22/19 14:30 81 24 H 97 11/22/19 11:21 97.6 F 11/22/19 10:40 89 19 99 11/22/19 09:02 88 11/22/19 08:00 97 11/22/19 07:24 97.9 F 11/22/19 07:23 88 22 H 100 Weight Admit Weight 169 lb 11.2 oz Weight 173 lb 8 oz Most Recent Monitor Data Heart Rate from ECG 122 NIBP 133/70 NIBP BP-Mean 91 Respiration from ECG 26 SpO2 97 I&O: 11/21/19 11/22/19 11/23/19 06:59 06:59 06:59 Intake Total 840 1530 Output Total 650 1175 Balance 190 355 Result Diagrams: 11/18/19 03:34 11/21/19 03:22 Additional Labs: Labs and MARs reviewed by me EKG Reviewed by me: Yes (Tele: seth sharpe) Hospitalist ROS - Review of Systems Respiratory: reports: SOB with excertion Cardiovascular: denies: chest pain, palpitations, orthopnea, paroxysmal noc. dyspnea, edema, light headedness Genitourinary: denies: dysuria, frequency, incontinence, hematuria, retention - Medication Medications: Active Medications Generic Name Dose Route Start Last Admin Trade Name Freq PRN Reason Stop Dose Admin Acetaminophen 650 mg 11/13/19 14:39 11/21/19 20:34 Tylenol PO 650 mg Q4H PRN Administration Headache/Fever/Mild Pain (1-3) Acetazolamide 250 mg 11/13/19 21:00 11/22/19 13:19 Diamox PO 250 mg TID KHADRA Administration Albuterol/Ipratropium 3 ml 11/15/19 14:30 11/22/19 14:30 Duoneb NEB 3 ml [id number] KHADRA Administration Aspirin 81 mg 11/14/19 09:00 11/22/19 09:02 Aspirin Chewable PO 81 mg DAILY KHADRA Administration Atorvastatin Calcium 20 mg 11/13/19 21:00 11/21/19 20:35 Lipitor PO 20 mg HS KHADRA Administration Benzonatate 100 mg 11/13/19 14:39 11/17/19 20:53 Tessalon PO 100 mg Q6H PRN Administration Cough Budesonide 0.5 mg 11/13/19 18:30 11/22/19 07:23 Pulmicort Neb Solution INH 0.5 mg BID-RT KHADRA Administration Digoxin 0.125 mg 11/19/19 09:00 11/22/19 09:02 Lanoxin PO 0.125 mg DAILY KHADRA Administration Diltiazem HCl 60 mg 11/21/19 12:00 11/22/19 13:19 Cardizem PO 60 mg Q6HR KHADRA Administration Famotidine 20 mg 11/13/19 21:00 11/22/19 09:01 Pepcid PO 20 mg BID KHADRA Administration Finasteride 5 mg 11/14/19 09:00 11/22/19 09:02 Proscar PO 5 mg DAILY KHADRA Administration Guaifenesin 600 mg 11/17/19 21:00 11/22/19 09:01 Mucinex PO 600 mg Q12HR KHADRA Administration Haloperidol Lactate 1 mg 11/16/19 19:33 11/17/19 20:53 Haldol IM 1 mg Q6H PRN Administration . Levofloxacin 500 mg 11/16/19 06:00 11/22/19 05:30 Levaquin PO 500 mg 0600 KHADRA Administration Melatonin 3 mg 11/17/19 19:11 11/21/19 20:35 Melatonin PO 3 mg HSPRN PRN Administration Insomnia Pantoprazole Sodium 40 mg 11/14/19 09:00 11/22/19 08:56 Protonix IVP Not Given DAILY KHADRA Prednisone 40 mg 11/18/19 08:00 11/22/19 09:01 Prednisone PO 40 mg QAM-WM KHADRA Administration Rivaroxaban 20 mg 11/15/19 09:00 11/22/19 09:01 Xarelto PO 20 mg DAILY KHADRA Administration Sodium Chloride 10 ml 11/13/19 15:51 11/14/19 10:02 Normal Saline Pf FS 10 ml PRN PRN Administration RECONSTITUTION - Exam General Appearance: awake alert ENT: moist mucosa Neck: supple Heart: no rubs, irregular Respiratory: CTAB Gastrointestinal: soft, non-tender Extremities: 2+ LE edema Skin: no rashes Psychiatric: normal affect, normal behavior Hosp A/P - Plan - Plan #acute on chronic hypercapnic respiratory failure -Clinically improved, transfer to telemetry. Did not use BiPAP last night. #atrial fibrillation with RVR #pulmonary congestion -Continue oral cardizem #acute metabolic encephalopathy -resolved #right infrahilar mass -workup as outpatient
[2019-11-22] MEDS: Melatonin 3 MG TAB PO PRN (20:12)
[2019-11-22] MEDS: Atorvastatin Calcium 20 MG TAB PO SCH (20:13)
[2019-11-22] MEDS: Acetaminophen 325 MG TAB PO PRN (20:13)
[2019-11-23] MEDS: Acetaminophen 325 MG TAB PO PRN (00:31)
[2019-11-23] MEDS: Budesonide 0.5 MG/2 ML NEB INH SCH (08:20)
[2019-11-23] MEDS: Famotidine 20 MG TAB PO SCH (09:26)
[2019-11-23] MEDS: guaiFENesin ER 600 MG TAB PO SCH (09:26)
[2019-11-23] MEDS: AcetaZOLAMIDE 250 MG TAB PO SCH ×2 (09:26→14:58)
[2019-11-23] MEDS: predniSONE 20 MG TAB PO SCH (09:26)
[2019-11-23] MEDS: Aspirin Chewable 81 MG TAB PO SCH (09:26)
[2019-11-23] MEDS: Digoxin 0.125 MG TAB PO SCH (09:26)
[2019-11-23] MEDS: Rivaroxaban 10 MG TAB PO SCH (09:27)
[2019-11-23] MEDS: Pantoprazole 40 MG VIAL IVP SCH (09:28)
[2019-11-23] MEDS: Finasteride 5 MG TAB PO SCH (09:28)
--- NOTE | 2019-11-23 11:08 | PRG ---
DATE OF SERVICE: 11/23/2019 SUBJECTIVE: Mr. [place] is sitting up in a chair. He is breathing better, feels better. OBJECTIVE: VITAL SIGNS: Blood pressure 101/44, as reported, the pulse is in the 90s. It is atrial arrhythmia with a controlled ventricular rate. ASSESSMENT: 1. Severe chronic obstructive pulmonary disease. 2. Atrial arrhythmias, rate controlled. PLAN: 1. Reduce diltiazem to CD 180 mg a day. 2. Continue digoxin 0.125 mg a day. 3. He is on aspirin. 4. He is on Xarelto. 5. In view of the edema, I am trying to minimize the amount of diltiazem necessary. The patient has moderate peripheral edema. Job ID: [id number]
[2019-11-23 15:40] VITALS: TEMP 98.8
[2019-11-23 16:26] VITALS: BP 146/75
--- NOTE | 2019-11-23 20:02 | PRG ---
DATE OF SERVICE: 11/23/2019 Hernandez De [place] is stable. He is a candidate to go home. I have cut his prednisone back to 20 mg a day. Currently, he is going to swing bed in [place]. After examining him and observing him for several days, I really do not think he is a candidate for workup of his lung mass or his renal masses. He still is being followed at the [facility], so we will make these decisions, but this is just my input for the record. We will sign off. Job ID: [id number]
--- NOTE | 2019-11-24 03:30 | DIS ---
DATE OF ADMISSION: 11/13/2019 DATE OF DISCHARGE: 11/23/2019 PRIMARY CARE PROVIDER: Saeed Nevarez MD DISCHARGE DIAGNOSES: 1. Acute on chronic respiratory failure with hypoxia and hypercapnia. 2. Chronic obstructive pulmonary disease exacerbation. 3. Acute on chronic diastolic congestive heart failure, [place] Heart Association class III. 4. Atrial fibrillation with rapid ventricular response. 5. Multifocal atrial tachycardia. 6. [id number] myocardial infarction type 2, secondary to chronic obstructive pulmonary disease exacerbation. 7. Metabolic alkalosis. 8. Hyponatremia. 9. Right hilar mass. CONSULTATIONS DURING THIS HOSPITALIZATION: Cardiology, Dr. Mario and Pulmonology, Dr. Santos. CONDITION OF PATIENT ON THE DAY OF DISCHARGE: Stable. I assessed Mr. De Leon on the day of discharge. He denies any chest pain. Shortness of breath has improved. Vital signs are stable. S1 and S2 are heard, regular. Lung examination reveals occasional expiratory wheeze. DISCHARGE MEDICATIONS: 1. Furosemide 40 mg daily. 2. Acetazolamide 250 mg 3 times a day, to be continued for 5 days and reassessed. 3. Aspirin 81 mg daily. 4. Lipitor 20 mg at bedtime. 5. Pulmicort nebulizer 0.5 mg 2 times a day. 6. Digoxin 0.125 mg daily. 7. Cardizem CD 180 mg daily. 8. Proscar 5 mg daily. 9. DuoNebs 4 times a day and p.r.n. 10. Levofloxacin 500 mg daily for 5 more days. 11. Protonix 40 mg daily. 12. Prednisone taper. 13. Rivaroxaban 20 mg daily. 14. Tessalon Perles p.r.n. HOSPITAL COURSE: Mr. De Leon is a pleasant 79-year-old gentleman, who was admitted to [facility] on November 13, 2019 for acute on chronic respiratory failure with hypoxia and hypercapnia. He was seen by Pulmonology and Cardiology Services. He was also found to be in atrial fibrillation with rapid ventricular response as well as multifocal atrial tachycardia. He improved with oxygen, steroids, bronchodilators, and antibiotics. He has been started on anticoagulation as well as calcium channel solis for atrial fibrillation. He also became physically deconditioned. He is being discharged to [facility] for further management. He was also found to have a right hilar mass. He is advised to follow up as outpatient. He has been cleared by Cardiology and Pulmonology Services for discharged to Swing bed. DIET: Low-sodium and heart healthy. ACTIVITY: As tolerated. DISCHARGE DESTINATION: [facility]. TIME SPENT: Total amount of time spent coordinating this discharge: 35 minutes. Job ID: [id number]
== END 2019-11-23 16:59 | DRG 280 ==
LOC: ERS 11:42 → ERHOLD 14:14 → IMCU/EMU 20:16
PROVIDERS: ADMIT Emergency Medicine; ATTEND Internal Medicine
PROC: 5A09357 Assistance with Respiratory Ventilation, Less than 24 Consecutive Hours, Continuous Positive Airway Pressure (ICD-10-PCS; principal; 2019-11-13)
DX: I11.0 Hypertensive heart disease with heart failure (principal); J96.21 Acute and chronic respiratory failure with hypoxia; I21.A1 Myocardial infarction type 2; J96.22 Acute and chronic respiratory failure with hypercapnia; G93.41 Metabolic encephalopathy; Z66 Do not resuscitate; J44.1 Chronic obstructive pulmonary disease with (acute) exacerbation; I47.1 Supraventricular tachycardia; E87.1 Hypo-osmolality and hyponatremia; I48.20 Chronic atrial fibrillation, unspecified; E87.4 Mixed disorder of acid-base balance; R64 Cachexia; I50.33 Acute on chronic diastolic (congestive) heart failure; R91.8 Other nonspecific abnormal finding of lung field; N40.0 Benign prostatic hyperplasia without lower urinary tract symptoms; E78.5 Hyperlipidemia, unspecified; D64.9 Anemia, unspecified; N28.89 Other specified disorders of kidney and ureter; I27.20 Pulmonary hypertension, unspecified; I45.81 Long QT syndrome; Z68.23 Body mass index [BMI] 23.0-23.9, adult; Z99.81 Dependence on supplemental oxygen; Z88.0 Allergy status to penicillin; Z88.8 Allergy status to other drugs, medicaments and biological substances; Z91.048 Other nonmedicinal substance allergy status; Z87.891 Personal history of nicotine dependence; Z79.899 Other long term (current) drug therapy; Z79.51 Long term (current) use of inhaled steroids; Z86.711 Personal history of pulmonary embolism; Z85.46 Personal history of malignant neoplasm of prostate; Z79.01 Long term (current) use of anticoagulants
CPT/HCPCS: 36415; 51701; 71045; 80048; 80053; 81003; 81015; 82553; 82805; 83605; 83735; 83880; 84484; 84550; 85025; 87040; 93005; 94640; 94660; 96365; 96366; 96375; 96376; 99292; C9113; J1160; J1630; J1940; J1956; J2060; J2920; J3480; J3490; J7050; J7512; J7620; J7626